=== PATIENT | female | born 1960 | race Caucasian/White ===

== ENCOUNTER → 2017-12-29 05:00 | Outpatient (REF) | payer MEDICARE, MEDICAID, SELFPAY ==
[2017-12-29 08:49] LABS: Erythrocyte Sedimentation Rate 65 mm/hr (0-30)
[2017-12-29 08:50] LABS: Hematocrit 41.5 % (37-47); Hemoglobin 13.5 g/dl (12.0-15.0); Mean Corp Hgb Conc 32.5 g/gl (32-36); Mean Corpuscular Hgb 29.2 pg (27.0-32.0); Mean Corpuscular Volume 89.6 fL (81-99); Mean Platelet Vol. 11.4 fl (6.2-12.0); Platelet Count 304 K/mm3 (150-450); RBC Distribution Width CV 17.1 % (11.6-14.6); RBC Distribution Width SD 54.5 fl (35.1-43.9); Red Blood Count 4.63 M/mm3 (4.2-5.4)
[2017-12-29 08:54] LABS: AST(SGOT) 25 U/L (15-37); Alanine Aminotransfer ALT/SGPT 31 U/L (13-56); Albumin, Serum 3.7 g/dL (3.2-5.0); Alkaline Phosphatase 73 U/L (45-117); Anion Gap 9 (5-15); BUN 18 mg/dL (7-18); BUN/Creat Ratio 30.2 RATIO (10-20); Calcium,Total 8.9 mg/dL (8.5-10.1); Chloride 105 mmol/L (98-107); EST Glomerular Filtration Rate 110 mL/min (>60); Est Glom Filt Rate - Afr Amer 133 mL/min (>60); Globulin 3.7 g/dL (2.2-4.2); Glucose 94 mg/dL (74-106); Potassium 5.6 mmol/L (3.5-5.1); Protein, Total 7.4 g/dL (6.4-8.2); Sodium Level 138 mmol/L (136-145)
[2017-12-29 08:58] LABS: Scan Indicated on CBC? Y/N NO
== END ==
LOC: OLS.WHLEAS 05:00
PROVIDERS: Visit Provider Family Medicine
DX: M06.9 Rheumatoid arthritis, unspecified (principal)
CPT/HCPCS: 36415; 80053; 85027; 85652

== ENCOUNTER → 2018-12-25 05:00 | Outpatient (REF) | payer MEDICARE, SELFPAY ==
[2018-12-25 07:13] LABS: Hematocrit 38.9 % (37-47); Hemoglobin 12.4 g/dl (12.0-15.0); Mean Corp Hgb Conc 31.9 g/gl (32-36); Mean Corpuscular Hgb 29.3 pg (27.0-32.0); Mean Platelet Vol. 10.3 fl (6.2-12.0); Platelet Count 249 K/mm3 (150-450); RBC Distribution Width CV 16.1 % (11.6-14.6); RBC Distribution Width SD 53.5 fl (35.1-43.9); Red Blood Count 4.23 M/mm3 (4.2-5.4); White Blood Count 7.2 K/mm3 (4.4-11.0)
[2018-12-25 07:16] LABS: Scan Indicated on CBC? Y/N NO
[2018-12-25 07:24] LABS: AST(SGOT) 12 U/L (15-37); Alanine Aminotransfer ALT/SGPT 12 U/L (13-56); Albumin, Serum 3.4 g/dL (3.2-5.0); Alkaline Phosphatase 61 U/L (45-117); Anion Gap 9 (5-15); BUN 16 mg/dL (7-18); BUN/Creat Ratio 30.2 RATIO (10-20); Calcium,Total 8.2 mg/dL (8.5-10.1); Chloride 111 mmol/L (98-107); Creatinine, Serum 0.53 mg/dL (0.55-1.02); EST Glomerular Filtration Rate 125 mL/min (>60); Est Glom Filt Rate - Afr Amer 152 mL/min (>60); Globulin 3.5 g/dL (2.2-4.2); Glucose 78 mg/dL (74-106); Protein, Total 6.9 g/dL (6.4-8.2); Sodium Level 142 mmol/L (136-145)
== END ==
LOC: OLS.AVED 05:00
PROVIDERS: Visit Provider Family Medicine
DX: R01.1 Cardiac murmur, unspecified (principal); M06.9 Rheumatoid arthritis, unspecified
CPT/HCPCS: 36415; 80053; 85027

== ENCOUNTER → 2021-03-20 14:47 | Outpatient (CLI) | payer MEDICARE, MEDICAID, SELFPAY ==
--- NOTE | 2021-03-20 14:52 | BD_ITS ---
STUDY: DUAL ENERGY X-RAY ABSORPTIOMETRY / DXA REASON FOR EXAM: Female, 60 years old. M06.9. Patient is postmenopausal. Daily use of PREDNISONE. Loss of height. TECHNIQUE: Bone Mineral Density (BMD) measurements of both forearms were obtained. COMPARISON: None. FINDINGS: Right Forearm: g/cm2 (0.466) / T-score (-4.8) / Z-score (-3.6) Left Forearm: g/cm2 (0.516) / T-score (-4.2) / Z-score (-3.1) BD/Dexa Bone Density/Append Skel IMPRESSION: The patient is considered osteoporotic as outlined below according to World Evaristo Organization (WHO) criteria with a high fracture risk. Reference Information: The T-score is the number of standard deviations above or below the standard which is normal for young adults at their peak bone mineral density. The World Health Organization (WHO) interprets the T-scores as follows: Above -1 Normal bone density Between -1 and -2.5 Osteopenia Equal to / or below -2.5 Osteoporosis As a practical clinical guideline, osteopenia may be graded as follows: Mild -1 through -1.5 Moderate -1.6 through -2.0 Severe -2.1 through -2.4 The Z-score is the number of standard deviations above or below age-matched controls. A Z-score of less than -1.5 would be considered abnormal. References: 1. NIH Osteoporosis and Related Bone Diseases www osteo.org 2. International Society for Clinical Densitometry www iscd.org 3. National Osteoporosis Foundation www nof.org Electronically Signed: Oniel Claros MD at 15:38 EDT , Service support ,
== END ==
PROVIDERS: PCP Family Medicine; Referring Provider Nurse Practitioner Family; Visit Provider Nurse Practitioner Family
DX: M06.9 Rheumatoid arthritis, unspecified (principal); M81.0 Age-related osteoporosis without current pathological fracture; Z78.0 Asymptomatic menopausal state
CPT/HCPCS: 77081

== ENCOUNTER 2025-05-08 02:57 | Emergency (ER) | payer MEDICARE, MEDICAID, SELFPAY ==
[2025-05-08] VITALS (8 sets, daily range): BP systolic 98–187; BP diastolic 56–90; PULSE 100–113; RESP 19–42; TEMP 36.8–37.1; O2SAT 92–98; BMI 65.6
--- NOTE | 2025-05-08 03:15 | CT_ITS ---
PROCEDURE: BRAIN/HEAD WITHOUT CONTRAST 05/08/2025 REASON FOR EXAM: HEADACHE, N/V, HIGH BP TECHNIQUE: BRAIN/HEAD WITHOUT CONTRAST Coronal and Sagittal reconstruction series were provided. One or more dose reduction techniques were used (e.g., Automated exposure control, adjustment of the mA and/or kV according to patient size, use of iterative reconstruction technique. RADIATION DOSE SUMMARY: CTDlvol: 44.99 mGy DLP: 863.6 MGycm COMPARISON: None. FINDINGS: Brain volume is age appropriate. The ventricles are not effaced or dilated. No midline shift, mass effect, or extra-axial fluid collections are identified. No acute intracranial hemorrhage, mass, or acute territorial infarction is identified per CT criteria. Walker-white junction is preserved. Calvarium is intact. Visualized paranasal sinuses are clear. The nasal septum is deviated to the right. CT/Brain/Head without Contrast IMPRESSION: No acute intracranial process. Reading [facility]
--- NOTE | 2025-05-08 03:16 | EKG12_ITS ---
Test Reason : DYSRHYTHMIA Blood Pressure : */* mmHG Vent. Rate : 107 BPM Atrial Rate : 107 BPM P-R Int : 164 ms QRS Dur : 96 ms QT Int : 350 ms P-R-T Axes : 28 -9 56 degrees QTcB Int : 467 ms Sinus tachycardia Otherwise normal ECG Confirmed by MALLORIE SALOMON, FIONA ([id number]), editorial writer CRESCENCIO EASLEY ([id number]) on 05/10/2025 7:42:32 AM Referred By: Confirmed By: FIONA NOBLES MD
--- NOTE | 2025-05-08 03:19 | ED.VIS.DYS ---
HPI History of Present Illness Chief Complaint: Shortness of Breath Informant: patient and EMS Narrative Narrative: 64-year-old female is in [facility] because of inability to ambulate related to severe rheumatoid arthritis, and started getting dyspneic tonight for hours, gradual in onset and worsening, so was brought to the ED at 3 AM for that and elevated blood pressure. She also states that for the last week or so she has been having progressively worsening pain in the back of her neck bilaterally that is worse when she moves from [id number] and better with remaining still. She had Biofreeze on it at 1 point which helped temporarily. She has had no injury. No fevers or chills, no mental status changes or focal neurologic deficits except she has been having headaches bitemporal along with some tingling in those areas and a couple times earlier in the week she states she had diplopia that was transient. She has had no vision changes or loss other than that, she has no focal neurologic symptoms or vision changes right now. She has chronic lymphedema in her abdomen and her legs that is no different than usual. She states she was nauseated and dry heaves earlier but denies any abdominal pain or diarrhea. She denies having any new back pain. [facility] Medical History Hypertensive heart disease Peripheral vascular disease Rheumatoid arteritis History of subarachnoid hemorrhage Home Medications ?Medication ?Instructions ?Recorded ?Last Taken ?Type alendronate 70 mg tablet (Fosamax) 70 mg PO QWEEK 05/08/25 Unknown History celecoxib 200 mg capsule 200 mg PO DAILY 05/08/25 Unknown History folic acid 1 mg tablet 1,000 mcg PO DAILY 05/08/25 Unknown History furosemide 20 mg tablet 20 mg PO DAILY 05/08/25 Unknown History hydroxychloroquine 200 mg tablet 300 mg PO DAILY 05/08/25 Unknown History (Plaquenil) methotrexate sodium 2.5 mg tablet 12.5 mg PO SEVERINO 05/08/25 Unknown History oxycodone-acetaminophen 5 mg-325 1 tab PO Q6H PRN PRN Pain 3 days 05/08/25 Unknown Rx mg tablet #12 TABLETS Allergy/AdvReac Type Severity Reaction Status Date / Time codeine AdvReac NEEDS Verified 05/08/25 02:59 FOLLOW-UP Social History Smoking Status: Never smoker ROS ROS ED Constitutional Constitutional ED: Denies chills or fever(s) Eyes Eyes: Reports other Details: Diplopia episodes earlier in the week but no vision changes now ; Denies change in vision ENT ENT ED: Denies rhinorrhea or sore throat Cardiovascular Cardiovascular: Denies chest pain or palpitations Respiratory/Chest Respiratory/Chest: Reports dyspnea; Denies cough Gastrointestinal Gastrointestinal: Reports nausea and vomiting; Denies abdominal pain or diarrhea Genitourinary Genitourinary ED: Denies dysuria or hematuria Musculoskeletal Musculoskeletal: Reports neck pain; Denies back pain Integumentary Denies abscess or rash Neurologic Neurologic: Reports headache(s) and other Details: Bitemporal head paresthesias, nothing in face or extremities ; Denies weakness Psychiatric Psychiatric: Denies suicidal thoughts EXAM Physical Exam Const Vital Signs: 05/08/25 02:58 05/08/25 02:58 05/08/25 03:24 Temperature 98.2 F Temperature Source Oral Pulse Rate 104 H 109 H Respiratory Rate 20 H 20 H Respiratory Effort Normal Non-Labored Respiratory Depth Normal Respiratory Pattern Tachypnea Normal Blood Pressure 187/84 H Blood Pressure Mean 118 Pulse Ox 98 Oxygen Delivery Method Room Air Room Air 05/08/25 03:35 05/08/25 04:31 05/08/25 05:07 Temperature Temperature Source Pulse Rate 112 H 113 H Respiratory Rate 42 H 19 H Respiratory Effort Respiratory Depth Respiratory Pattern Blood Pressure Blood Pressure Mean Pulse Ox 94 92 Oxygen Delivery Method Room Air 05/08/25 05:21 05/08/25 06:00 Temperature Temperature Source Pulse Rate 108 H Respiratory Rate Respiratory Effort Respiratory Depth Respiratory Pattern Blood Pressure 98/56 L 114/80 Blood Pressure Mean 70 91 Pulse Ox Oxygen Delivery Method Positive well nourished and well developed Constitutional Narrative: Morbidly obese General Appearance ED: well developed and NAD HEENT Reports moist mucous membranes normocephalic and atraumatic Eyes PERRL and EOMs intact bilaterally Neck full ROM, no lymphadenopathy, supple and no meningeal signs Neck Narrative: Limited eval for JVD due to obesity. Tender at the base bilateral posterior neck and trapezius. No midline tenderness. Able to take her chin to her chest without any difficulty or limitation, it is more turning [id number] it gives her issues. Resp normal respiratory effort Resp Narrative: Diminished throughout, mild expiratory wheezes, limited exam due to obesity but otherwise clear and conversive in full sentences Cardio regular rate, regular rhythm and no murmurs Cardio Narrative: Mildly tachycardic GI non-tender and non-distended GI Narrative: Abdominal exam is benign but limited due to morbid obesity Auscultation: normoactive bowel sounds Palpation: soft Back/Spine no CVA tenderness General Back: other FROM Extremity Extremity Narrative: Legs are grossly edematous, scaly, chronic and stable per patient, diffusely tender which she states is chronic as well. No signs of acute infection. Large chronic appearing nontender right olecranon bursitis. Several nontender firm nodules dorsal aspect of the right hand. General Extremety ED: Yes edema and tenderness; Negative for pulses abnormal General Extremity: edema bilateral lower extremity Details: severe; Negative for pulses abnormal Neuro oriented x3, CN's II-XII intact bilaterally and no sensory deficits noted Sensorium / Orientation: awake and alert Motor Exam: general weakness Psych Psych Narrative: Seems a little anxious Skin no rashes or lesions noted and no wounds MDM MDM MDM Narrative Medical decision making narrative: Unclear if or how the neck pain which seems very muscular is related to her acute dyspnea and hypertension. However given the plethora of symptoms, considering subarachnoid hemorrhage which she apparently has had a history of in the past, as well as congestive heart failure, wheezy bronchitis and/or allergic reaction causing pulmonary wheezing, pulmonary embolus, pneumonia although she has no acute cough, would be impossible to detect clinical DVT given the amount of edema on chronic abnormalities of the skin of her lower extremities. Therefore adding a dimer to her blood work. This was significantly elevated. In the meantime she had a chest x-ray 1 view on my interpretation unremarkable, and CT of the head on my interpretation appears unremarkable. She was sent for CT angiography of the chest to evaluate for PE, however she is too obese to fit in the scanner; they were able to do her head because they did not need to fit her body in the scanner. Her I had a long discussion with the patient and her niece who later arrived concerning all of this. She is feeling better after the nebulizer treatment, but she is really concerned about her neck. She states when she takes a deep breath her neck hurts, but her upper back and chest do not. She was in the 180s at the [facility], 180s here, but now when we recheck her she is 98/56 and actually feeling better not worse. We discussed the possibility of aortic dissection, pulmonary embolus, musculoskeletal issue in her neck that may or may not be related to her rheumatoid arthritis, pinched nerves for which she would be very difficult to get her in an MRI machine or may be impossible, and/your migraine headaches. I discussed my recommendation of anticoagulation empirically until she can have an outpatient VQ scan since she is not hypoxic, and it was not until this discussion that she states she would rather take her chances and not be anticoagulated and not come back for any other testing and I found out that she is DNR comfort care only, which our staff was not told by EMS or the [facility]. Patient confirms this. She states she does not want any of these advanced treatments or diagnostics, she just wants to be made comfortable which is why she is concerned about the neck pain that she is never dealt with before. I did obtain some x-rays of her neck, 3 views on my interpretation show no acute fracture. There are degenerative changes. In the meantime I gave her some Toradol and Reglan to see if that would help with musculoskeletal and/or migraine related pain. It helped a little, she was later given Dilaudid which really helped significantly. At this time she is feeling much better, cardiac and proBNP labs returned normal, and she understands about the abnormal D-dimer her dyspnea is better now after the nebulizer treatment and her blood pressure is 114/80. She is comfortable going back with a prescription for a short course of oxycodone. Lab Data Attestation: I reviewed the patient's lab results. Labs: Laboratory Results - last 24 hr 05/08/25 05/08/25 03:30 04:51 WBC 10.6 RBC 4.29 Hgb 11.3 L Hct 36.2 L MCV 84.4 MCH 26.3 L MCHC 31.2 L RDW Std Deviation 61.7 H RDW Coeff of Blaise 20.4 H Plt Count 238 MPV 10.2 Immature Gran % (Auto) 0.600 Neut % (Auto) 81.0 H Lymph % (Auto) 4.3 L Ritchie % (Auto) 12.8 H Eos % (Auto) 0.7 Baso % (Auto) 0.6 Absolute Neuts (auto) 8.6 H Absolute Lymphs (auto) 0.46 L Nucleated RBC % 0 Differential Comment SCANNED Polychromasia RARE Anisocytosis 1+ D-Dimer Quant (PE/DVT) 2.01 H* Sodium Cancelled 138 Potassium Cancelled 4.8 Chloride Cancelled 105 Carbon Dioxide Cancelled 20.1 L Anion Gap Cancelled 13 BUN Cancelled 15 Creatinine Cancelled 0.72 Estim Creat Clear Calc Cancelled 96.42 Est GFR (MDRD) Non-Af Cancelled 93 BUN/Creatinine Ratio Cancelled 20.9 H Glucose Cancelled 136 H Calcium Cancelled 8.7 Troponin T High Sens 9 NT pro BNP II 504 Radiography Diagnostic Testing: Clinical Impression(s) from Imaging Studies Brain CT 05/08/25 03:15 IMPRESSION: No acute intracranial process. Reading Location: [facility] Chest X-Ray 05/08/25 03:55 IMPRESSION: No acute cardiopulmonary process. Reading Location: [facility] Cervical Spine X-Ray 05/08/25 05:50 IMPRESSION: No acute process. Disc disease and spondylosis as above. Disclaimer: Reading [facility] Rhythm Strip Rhythm Strip: Sinus Tach Rate: 105 Ectopy: None EKG Initial EKG: Attestation: I personally reviewed and interpreted this EKG as follows: Interpretation: No Acute Injury Pattern and Sinus Tachycardia Comments: Nml axis & intervals; nml EKG Prior EKG tracings: not available for review Prior: No Prior Discharge Plan Triage Chief Complaint: Shortness of Breath ED Provider: Kenan Connolly Dx/Rx/DC Orders Clinical Impression: Wheezing, Musculoskeletal neck pain, Episode of hypertension, Headache Instructions: Understanding Neck Problems Prescriptions: New oxycodone-acetaminophen 5-325 mg tablet 1 tab PO Q6H PRN PRN (Reason: Pain) 3 Days Qty: 12 0RF No Action celecoxib 200 mg capsule 200 mg PO DAILY folic acid 1 mg tablet 1,000 mcg PO DAILY alendronate [Fosamax] 70 mg tablet 70 mg PO QWEEK methotrexate sodium 2.5 mg tablet 12.5 mg PO SEVERINO furosemide 20 mg tablet 20 mg PO DAILY hydroxychloroquine [Plaquenil] 200 mg tablet 300 mg PO DAILY Primary Care Provider: Spencer West Referrals: Spencer West MD [Primary Care Provider] - 3-5 Days if not improving Print Language: Kinyarwanda Disposition Disposition: Home, Self Care
--- OUTSIDE RECORDS SUMMARY | 2025-05-08 03:21 | XMS RPT_ITS | CCD ---
Author Organization [facility] Team Providers Care Oxygen Therapy Teacher Name Role Phone Joshua Ziegler (Hist) Primary Care Provider Un available [facility] Doctor, Out of Attending Unavailable Spencer West Primary Care Unavailable Spencer Bautista Attending Unavailable Joshua Ziegler (Hist) Primary Care Provider Un available ROWE, YANCYERPRIT Referring Unavailable JOSHUA ZIEGLER (HIST) Primary Care Unavaila ble ROWE, INDERPRIT Attending Unavailable JOSHUA ZIEGLER (HIST) Primary Care Unavaila ble ROWE, INDERPRIT Attending Unavailable Allergies Allergy Classification Reported Allergen(s) Allergy Type Date of Onset Reaction(s) Facility Opioid Agonists (2 sources) Codeine Drug Allergy 08-30-2013 GI Upset [facility] (20 sources) Codeine; Translations: [CODEINE] Drug Allergy 08-30-2013 [facility] Medications Current Medications Medication Drug Class(es) Dates Sig (Normalized) Sig (Original) acetaminophen 325 mg oral tablet (20 sources) take 2 tablets by mouth every six hours as needed acetaminophen (TYLENOL) 325 mg tablet Take 650 mg by mouth every 6 hours as needed. Active Comment on above: Take 650 mg by mouth every 6 hours as needed. alendronic acid 70 mg oral tablet (20 sources) Bisphosphonate Start: 05-11-2021 take 1 tablet by mouth every week in the morning alendronate (FOSAMAX) 70 mg tablet Take 1 tablet by mouth one time a week. in the AM with glass of water on empty stomach. Do not take anything else by mouth or lie down for 30 min 12 tablet 3 11/29/2021 Active Start: 02-19-2021 End: 08-18-2021 take 1 tablet by mouth every week in the morning alendronate (FOSAMAX) 35 mg tablet Take 1 tablet by mouth one time a week. In AM with cup of water on empty stomach. Nothing else by mouth and stay upright for 30 min. 12 tablet 1 02/19/2021 08/18/2021 Active Comment on above: Take 1 tablet by feliz one time a week. In AM with cup of water on empty stomach. Nothing else by mouth and stay upright for 30 min. Take 1 tablet by feliz th one time a week. in the AM with glass of water on empty stomach. Do not take anything else by mouth or lie down for 30 min celecoxib 200 mg oral capsule (20 sources) Nonsteroidal Anti-inflammatory Drug Start: 02-11-2025 End: 08-10-2025 take 1 capsule by mouth once daily celecoxib (CELEBREX) 200 mg capsule Take 1 capsule by mouth once daily. 30 capsule 5 02/11/2025 08/10/2025 Active Start: 11-29-2021 End: 11-29-2022 take 1 capsule by mouth once daily celecoxib (CELEBREX) 200 mg capsule Take 1 capsule by mouth once daily. 90 capsule 3 11/29/2021 11/29/2022 Active Comment on above: Take 200 mg by mouth once daily. Take 1 capsule by mo [facility] once daily. folic acid 1 mg oral tablet (18 sources) Start: 2021 End: 2022 take 1 tablet by mouth once daily folic acid 1 mg tablet Take 1 tablet by mouth once daily. 90 tablet 3 11/29/2021 11/29/2022 Active Comment on above: Take 1 mg by mouth o nce daily. Take 1 tablet by feliz once daily. furosemide 20 mg oral tablet (5 sources) Loop Diuretic take 1 tablet by mouth once daily furosemide (LASIX) 20 mg tablet Take 20 mg by mouth once daily. Active Comment on above: Take 20 mg by mouth once daily. hydroxychloroquine sulfate 200 mg oral tablet (17 sources) Antimalarial, Antirheumatic Agent Start: 2020 End: 2020 take 1.5 tablets by mouth once daily hydrOXYchloroQUINE (PLAQUENIL) 200 mg tablet Take 1.5 tablets by mouth once daily. 135 tablet 1 05/11/2021 11/07/2021 Active hydrOXYchloroQUI NE (PLAQUENIL) 200 mg tablet Take 300 mg by mouth once daily. Active Comment on above: Take 1.5 tablets by mouth once daily. Take 300 mg by mouth once daily. methotrexate 2.5 mg oral tablet (20 sources) Folate Analog Metabolic Inhibitor Start: 06-16-2022 End: 12-13-2022 methotrexate 2.5 mg tablet Take 10 tablets by mouth every Friday. as directed. 120 tablet 06/16/2022 Active Start: 06-16-2022 End: 06-11-2022 methotrexate 2.5 mg tablet T kelli 10 tablets by mouth every Friday. as directed. 120 tablet 0 06/16/2022 06/11/2022 Discontinued Start: 06-16-2022 End: 12-13-2022 methotrexate 2.5 mg tablet T kelli 10 tablets by mouth every Friday. as directed. 120 tablet 0 06/16/2022 12/13/2022 Active Start: 12-02-2021 End: 06-10-2022 methotrexate 2.5 mg tablet T kelli 10 tablets by mouth every Friday. as directed. 120 tablet 0 12/02/2021 06/10/2022 Discontinued Start: 11-18-2021 End: 11-28-2021 take 1 tablet by mouth once methotrexate 2.5 mg tablet Take 10 tablets by mouth every Friday. as directed. 120 tablet 1 11/18/2021 11/28/2021 Discontinued Start: 11-18-2021 End: 11-15-2021 take 1 tablet by mouth once methotrexate 2.5 mg tablet Take 10 tablets by mouth every Friday. as directed. 120 tablet 1 11/18/2021 11/15/2021 Discontinued (Course of therapy completed) Start: 11-18-2021 End: 05-17-2022 take 1 tablet by mouth once methotrexate 2.5 mg tablet Take 10 tablets by mouth every Friday. as directed. 120 tablet 1 11/18/2021 05/17/2022 Active Start: 02-25-2021 End: 02-14-2022 take 8 tablets by mouth once methotrexate 2.5 mg table t Take 8 tablets by mouth every Friday. as directed. 104 tablet 1 02/25/2021 02/14/2022 Discontinued Start: 02-25-2021 End: 02-19-2021 take 8 tablets by mouth once methotrexate 2.5 mg table t Take 8 tablets by mouth every Friday. as directed. 104 tablet 1 02/25/2021 02/19/2021 Discontinued Start: 02-25-2021 End: 08-24-2021 take 8 tablets by mouth once methotrexate 2.5 mg table t Take 8 tablets by mouth every Friday. as directed. 104 tablet 1 02/25/2021 08/24/2021 Active End: 05-17-2022 methotrexate 2.5 mg tablet T kelil 25 mg by mouth one time a week. 0 05/17/2022 Discontinued (Course of therapy completed) End: 02-19-2021 take 5 tablets by mouth every week methotrexate 2.5 mg tablet Take 12.5 mg by mouth one time a week. 0 02/19/2021 Discontinued (Course of therapy completed) Comment on above: Take 12.5 mg by mout h one time a week. Take 8 tablets by mo uth every Friday. as directed. Take 10 tablets by m outh every Friday. as directed. Take 25 mg by mouth one time a week. Completed/Discontinued Medications Medication Drug Class(es) Dates Sig (Normalized) Sig (Original) diphenhydrAMINE hydrochloride 25 mg oral capsule (1 source) Histamine-1 Receptor Antagonist End: 02-19-2021 take 1 capsule by mouth every six hours as needed diphenhydrAMINE (BENADRYL) 25 mg capsule Take 25 mg by mouth every 6 hours as needed. 0 02/19/2021 Discontinued (Course of therapy completed) Comment on above: Take 25 mg by mouth every 6 hours as needed. Naproxen (1 source) Nonsteroidal Anti-inflammatory Drug End: 02-19-2021 NAPROXEN SODIUM (ALEVE ORAL) Take by mouth. 0 02/19/2021 Discontinued (Course of therapy completed) Comment on above: Take by mouth. predniSONE 2.5 mg oral tablet (7 sources) Start: 03-07-2021 take 1 tablet by mouth once daily predniSONE (DELTASONE) 2.5 mg tablet Take 1 tablet by mouth once daily. 0 03/07/2021 Active Start: 02-19-2021 End: 05-20-2021 take 1 tablet by mouth once daily predniSONE (DELTASONE) 5 mg tablet Take 1 tablet by mouth once daily. 90 tablet 1 02/19/2021 03/07/2021 Discontinued (Course of therapy completed) Start: 08-30-2013 End: 02-19-2021 predniSONE 10 mg tablet Bernadette cations: Shingles Take 6 tabs for 3 days, then 4 tabs for 3 days, then 2 tabs for 3 days then 1 tab for 3 days with food. 39 tablet 0 08/30/2013 02/19/2021 Discontinued (Course of therapy completed) Comment on above: Take 1 tablet by feliz th once daily. Take 6 tabs for 3 da ys, then 4 tabs for 3 days, then 2 tabs for 3 days then 1 tab for 3 days with food. traMADol hydrochloride 50 mg oral tablet (6 sources) Opioid Agonist Start: 02-19-2021 End: 02-26-2021 take 1 tablet by mouth every six hours as needed for pain traMADol (ULTRAM) 50 mg tablet Indications: Rheumatoid arthritis involving both hands with positive rheumatoid factor (HCC) Take 1 tablet by mouth every 6 hours as needed for Pain for up to 7 days. 28 tablet 0 02/19/2021 02/26/2021 Active Comment on above: Take 50 mg by mouth every 6 hours as needed. Take 1 tablet by feliz th every 6 hours as needed for Pain for up to 7 days. Take 1 tablet by feliz th every 6 hours as needed for up to 7 days. Problems Active Problems Problem Classification Problem Date Documented Date Episodic/Chronic Osteoporosis (9 sources) Senile osteoporosis; Translations: [Age-related osteoporosis without current pathological fracture] Onset: 10-04-2024 10-04-2024 Chronic Other connective tissue disease (2 sources) Effusion of olecranon bursa of right elbow; Translations: [Effusion of right olecranon bursa] Onset: 03-07-2021 03-07-2021 Other infections; including parasitic (1 source) Disorder due to infection; Translations: [Unspecified infectious disease] Episodic Residual codes; unclassified (1 source) Postmenopausal state; Translations: [Asymptomatic postmenopausal status] Episodic Rheumatoid arthritis and related disease (20 sources) Rheumatoid arthritis with rheumatoid factor of right hand without organ or systems involvement; Translations: [Bilateral rheumatoid arthritis of hands] Onset: 03-07-2021 03-07-2021 Chronic Past or Other Problems Problem Classification Problem Date Documented Da te Episodic/Chronic Other non-traumatic joint disorders (18 sources) Effusion of olecranon bursa of right elbow; Translations: [Effusion, right elbow] Onset: 03-07-2021 03-07-2021 Episodic Results Test Name Value Interpretation Reference Range Migue Bolden 02-11-2025 DORISN Telephone ([employer]) ----- ESTEPHANIE RICHARDSON ([id number]) 1960 F Date Time Provider Department 02/11/25 SUSAN ROWE During your visit today, we recorded the following information about you: Allergies As of Date: 02/11/2025 Noted Allergy Reaction CODEINE 08/30/2013 8 - GI Upset Comments: Pain in chest, felt hot Date Reviewed: 05/17/2022 Reviewed by: Susan Rowe MD - Fully Assessed Prescriptions as of 02/11/2025 - celecoxib (CELEBREX) 200 mg capsule Take 1 capsule by mouth once daily. - furosemide (LASIX) 20 mg tablet Take 20 mg by mouth once daily. - methotrexate 2.5 mg tablet Take 10 tablets by mouth every Friday. as directed. - alendronate (FOSAMAX) 70 mg tablet Take 1 tablet by mouth one time a week. in the AM with glass of water on empty stomach. Do not take anything else by mouth or lie down for 30 min - hydrOXYchloroQUINE (PLAQUENIL) 200 mg tablet Take 300 mg by mouth once daily. - acetaminophen (TYLENOL) 325 mg tablet Take 650 mg by mouth every 6 hours as needed. Problem List As Of Date 02/11/2025 Noted Resolved Rheumatoid arthritis involving both hands with *03/07/2021 Effusion of right olecranon bursa [M25.421] 03/07/2021 Senile osteoporosis [M81.0] 10/04/2024 Encounter Status:Closed by YESSICA LYLES on 02/11/25 [facility] Kim[facility]20[facility] ----- RADHAESTEPHANIE Arce ([id number]) 1960 F Date Time Provider Department 10/05/24 SUSAN ROWE During your visit today, we recorded the following information about you: Allergies As of Date: 10/05/2024 Noted Allergy Reaction CODEINE 08/30/2013 8 - GI Upset Comments: Pain in chest, felt hot Date Reviewed: 05/17/2022 Reviewed by: Susan Rowe MD - Fully Assessed Reason for Visit: Appointment [[id number]] Prescriptions as of 10/05/2024 - furosemide (LASIX) 20 mg tablet Take 20 mg by mouth once daily. - methotrexate 2.5 mg tablet Take 10 tablets by mouth every Friday. as directed. - alendronate (FOSAMAX) 70 mg tablet Take 1 tablet by mouth one time a week. in the AM with glass of water on empty stomach. Do not take anything else by mouth or lie down for 30 min - hydrOXYchloroQUINE (PLAQUENIL) 200 mg tablet Take 300 mg by mouth once daily. - acetaminophen (TYLENOL) 325 mg tablet Take 650 mg by mouth every 6 hours as needed. Problem List As Of Date 10/05/2024 Noted Resolved Rheumatoid arthritis involving both hands with *03/07/2021 Effusion of right olecranon bursa [M25.421] 03/07/2021 Senile osteoporosis [M81.0] 10/04/2024 Encounter Status:Closed by YESSICA LYLES on 10/05/24 [facility] Encounters Encounter Date Encounter Type Care Provider Facility Start: 02-11-2025 End: 02-11-2025 Telephone encounter Susan Rowe MD Work Phone: [facility] [place] Start: 02-11-2025 End: 02-11-2025 Patient encounter procedure Susan Rowe MD Work Phone: [facility] [place] Comment on above: Rheumatoid arthritis involving both hands with positive rheumatoid factor (HCC) (Primary Dx); Disuse osteoporosis Start: 02-11-2025 End: 02-11-2025 Telemedicine consultation with patient Susan Rowe MD Work Phone: [facility] [place] Start: 02-11-2025 End: 02-11-2025 ambulatory JOSHUA Garnica (ANGELICA) TONEY Facility:[facility] Start: 10-11-2024 ambulatory Out of Town Doctor Kira hopey:[facility] Start: 10-05-2024 End: 10-05-2024 Telephone encounter Susan Rowe MD Work Phone: [facility] [place] Comment on above: Appointment Start: 10-04-2024 End: 10-04-2024 Patient encounter procedure Susan Rowe MD Work Phone: [facility] [place] Comment on above: Rheumatoid arthritis involving both hands with positive rheumatoid factor (HCC) (Primary Dx); Senile osteoporosis Start: 10-04-2024 End: 10-04-2024 Telemedicine consultation with patient Susan Rowe MD Work Phone: [facility] [place] Start: 10-04-2024 End: 10-04-2024 ambulatory SUSAN ROWE Facility:[facility] Start: 09-20-2024 ambulatory Spencer West Facility:[facility] Start: 08-16-2022 End: 08-16-2022 ambulatory Susan Rowe MD Work Phone: [facility] [place] Comment on above: Rheumatoid arthritis involving both hands with positive rheumatoid factor (HCC) (Primary Dx) Start: 08-16-2022 End: 08-16-2022 Telemedicine consultation with patient Susan Rowe MD Work Phone: [facility] Start: 06-11-2022 Telephone encounter Susan Rowe MD Work Phone: [facility] Comment on above: Medication Request Start: 06-10-2022 Refill Susan sanchez MD Work Phone: [facility] [place] Comment on above: Refill Request Start: 05-30-2022 Telephone encounter Susan Rowe MD Work Phone: [facility] [place] Comment on above: Follow Up Start: 05-17-2022 End: 05-17-2022 ambulatory Susan Rowe MD Work Phone: [facility] [place] Comment on above: Rheumatoid arthritis involving both hands with positive rheumatoid factor (HCC) (Primary Dx) Start: 05-17-2022 End: 05-17-2022 Telemedicine consultation with patient Susan Rowe MD Work Phone: [facility] Start: 02-14-2022 Telephone encounter Susan Rowe MD Work Phone: [facility] [place] Comment on above: Follow Up Start: 02-14-2022 End: 02-14-2022 ambulatory Susan Rowe MD Work Phone: [facility] [place] Comment on above: Rheumatoid arthritis involving both hands with positive rheumatoid factor (HCC) (Primary Dx); Recurrent infections Start: 02-14-2022 End: 02-14-2022 Telemedicine consultation with patient Susan Rowe MD Work Phone: [facility] Start: 11-28-2021 Telephone encounter Susan Rowe MD Work Phone: [facility] [place] Comment on above: Patient Update Refill Request Start: 11-15-2021 Telephone encounter Susna Roew MD Work Phone: [facility] [place] Comment on above: Medication Request Start: 08-16-2021 End: 08-16-2021 Telephone encounter Susan Rowe MD Work Phone: [facility] [place] Comment on above: Booster / Methotrexa te Start: 08-16-2021 End: 08-16-2021 ambulatory Susan Rowe MD Work Phone: [facility] [place] Comment on above: Rheumatoid arthritis involving both hands with positive rheumatoid factor (HCC) (Primary Dx) Start: 08-16-2021 End: 08-16-2021 Telemedicine consultation with patient Susan Rowe MD Work Phone: [facility] [place] Start: 05-11-2021 End: 05-11-2021 Telephone encounter Susan Rowe MD Work Phone: [facility] [place] Comment on above: Orders Start: 03-09-2021 End: 03-09-2021 Telephone encounter Susan Rowe Work Phone: [facility] Comment on above: Initial Consult (dayana chamorro) Start: 03-07-2021 End: 03-07-2021 Patient encounter procedure Susan Rowe Work Phone: [facility] Comment on above: Rheumatoid arthritis involving both hands with positive rheumatoid factor (HCC) (Primary Dx); Effusion of right olecranon bursa Start: 03-07-2021 End: 03-07-2021 Telemedicine consultation with patient Susan Rowe Work Phone: [facility] Start: 02-21-2021 End: 02-21-2021 Telephone encounter Susan Rowe Work Phone: [facility] Comment on above: Patient Update Start: 02-19-2021 End: 02-19-2021 Telephone encounter Susan Rowe Work Phone: [facility] Comment on above: Patient Update Start: 02-16-2021 End: 02-19-2021 Patient encounter procedure Susan Rowe Work Phone: [facility] Comment on above: Rheumatoid arthritis involving both hands with positive rheumatoid factor (HCC) (Primary Dx); Asymptomatic postmenopausal status Start: 02-16-2021 End: 02-19-2021 Telemedicine consultation with patient Yancydorinda Michi Work Phone: [facility] Plan of Treatment Date Care Activity Detail Author Start: 2033 RSV Vaccine (1 - 1-d ose 75+ series) RSV Vaccine (1 - 1-dose 75+ series) [facility] Start: 06-17-2025 End: 06-17-2025 Patient encounter procedure 06/17/2025 1:20 PM EDT [facility] [place] [id number] [place], [place] [id number] Susan Rowe MD [address] [place], [place] [id number] 3 MONTH FU [facility] [place] Comment on above: 3 MONTH FU Start: 02-11-2025 End: 05-13-2025 CBC W Auto Differential panel - Blood COMPLETE BLOOD COUNT AND DIFFERENTIAL Lab Routine Rheumatoid arthritis involving both hands with positive rheumatoid factor (HCC) Expected: 02/11/2025, Expires: 05/13/2025 [facility] Work Phone: Comment on above: Expected: 02/11/2025 , Expires: 05/13/2025 Start: 02-11-2025 End: 05-13-2025 Comprehensive metabolic 2000 panel - Serum or Plasma COMPREHENSIVE METABOLIC PANEL Lab Routine Rheumatoid arthritis involving both hands with positive rheumatoid factor (HCC) Expected: 02/11/2025, Expires: 05/13/2025 [facility] Comment on above: Expected: 02/11/2025 , Expires: 05/13/2025 Start: 02-11-2025 End: 05-13-2025 Erythrocyte sedimentation rate SEDIMENTATION RATE, WESTERGREN Lab Routine Rheumatoid arthritis involving both hands with positive rheumatoid factor (HCC) Expected: 02/11/2025, Expires: 05/13/2025 [facility] Comment on above: Expected: 02/11/2025 , Expires: 05/13/2025 Start: 02-11-2025 End: 02-11-2025 Follow-up encounter 02/11/2025 1:20 PM EDT [facility] [place] [id number] [place], [place] [id number] Susan Rowe MD [address] [place], [place] [id number] Follow up [facility] [place] Comment on above: Follow up Start: 11-24-2024 Advance Directive Discussion Advance Directive Discussion [facility] Start: 07-25-2024 Covid-19 Vaccine ( season) Covid-19 Vaccine ( season) [facility] Start: 07-25-2024 Influenza vaccination Influenza Vacc ine (#1) [facility] Start: 11-24-2023 Advance Directive Discussion Advance Directive Discussion [facility] Start: 2023 Pneumococcal Vaccine : 65+ (1 of 1 - PCV) Pneumococcal Vaccine: 65+ (1 of 1 - PCV) [facility] Start: 2023 Screening for osteoporosis Bone Density Screening [facility] Start: 08-16-2022 End: 10-16-2022 CBC W Auto Differential panel - Blood CBC + DIFF Lab Routine Rheumatoid arthritis involving both hands with positive rheumatoid factor (HCC) Expected: 08/16/2022, Expires: 10/16/2022 [facility] Work Phone: Comment on above: Expected: 08/16/2022 , Expires: 10/16/2022 Start: 08-16-2022 End: 10-16-2022 Comprehensive metabolic 2000 panel - Serum or Plasma COMP METABOLIC PANEL Lab Routine Rheumatoid arthritis involving both hands with positive rheumatoid factor (HCC) Expected: 08/16/2022, Expires: 10/16/2022 [facility] Work Phone: Comment on above: Expected: 08/16/2022 , Expires: 10/16/2022 Start: 08-16-2022 End: 10-16-2022 Erythrocyte sedimentation rate SED RATE WESTERGREN Lab Routine Rheumatoid arthritis involving both hands with positive rheumatoid factor (HCC) Expected: 08/16/2022, Expires: 10/16/2022 [facility] Work Phone: Comment on above: Expected: 08/16/2022 , Expires: 10/16/2022 Start: 07-25-2022 Influenza vaccination INFLUENZA (#1) [facility] Start: 05-17-2022 End: 07-17-2022 CBC panel - Blood by Automated count CBC Lab Routine Rheumatoid arthritis involving both hands with positive rheumatoid factor (HCC) Expected: 05/17/2022, Expires: 07/17/2022 [facility] Work Phone: Comment on above: Expected: 05/17/2022 , Expires: 07/17/2022 Start: 05-17-2022 End: 07-17-2022 Comprehensive metabolic 2000 panel - Serum or Plasma COMP METABOLIC PANEL Lab Routine Rheumatoid arthritis involving both hands with positive rheumatoid factor (HCC) Expected: 05/17/2022, Expires: 07/17/2022 [facility] Work Phone: Comment on above: Expected: 05/17/2022 , Expires: 07/17/2022 Start: 05-17-2022 End: 07-17-2022 Erythrocyte sedimentation rate SED RATE WESTERGREN Lab Routine Rheumatoid arthritis involving both hands with positive rheumatoid factor (HCC) Expected: 05/17/2022, Expires: 07/17/2022 [facility] Work Phone: Comment on above: Expected: 05/17/2022 , Expires: 07/17/2022 Start: 02-14-2022 End: 04-16-2022 CBC W Auto Differential panel - Blood CBC + DIFF Lab Routine Rheumatoid arthritis involving both hands with positive rheumatoid factor (HCC) Expected: 02/14/2022, Expires: 04/16/2022 [facility] Work Phone: Comment on above: Expected: 02/14/2022 , Expires: 04/16/2022 Start: 02-14-2022 End: 04-16-2022 Comprehensive metabolic 2000 panel - Serum or Plasma COMP METABOLIC PANEL Lab Routine Rheumatoid arthritis involving both hands with positive rheumatoid factor (HCC) Expected: 02/14/2022, Expires: 04/16/2022 [facility] Work Phone: Comment on above: Expected: 02/14/2022 , Expires: 04/16/2022 Start: 02-14-2022 End: 04-16-2022 DIPHTHER/TETANUS AB DIPHTHER/TETANUS AB Lab Routine Recurrent infections Expected: 02/14/2022, Expires: 04/16/2022 [facility] Work Phone: Comment on above: Expected: 02/14/2022 , Expires: 04/16/2022 Start: 02-14-2022 End: 04-16-2022 Erythrocyte sedimentation rate SED RATE WESTERGREN Lab Routine Rheumatoid arthritis involving both hands with positive rheumatoid factor (HCC) Expected: 02/14/2022, Expires: 04/16/2022 [facility] Work Phone: Comment on above: Expected: 02/14/2022 , Expires: 04/16/2022 Start: 02-14-2022 End: 04-16-2022 IgG [Mass/volume] in Serum or Plasma IGG Lab Routine Recurrent infections Expected: 02/14/2022, Expires: 04/16/2022 [facility] Work Phone: Comment on above: Expected: 02/14/2022 , Expires: 04/16/2022 Start: 02-14-2022 End: 04-16-2022 PNEUMOCOCCAL IGG ABS, 14 SEROTYPES PNEUMOCOCCAL IGG ABS, 14 SEROTYPES Lab Routine Recurrent infections Expected: 02/14/2022, Expires: 04/16/2022 [facility] Work Phone: Comment on above: Expected: 02/14/2022 , Expires: 04/16/2022 Start: 11-28-2021 End: 11-28-2022 C reactive protein [Mass/volume] in Serum or Plasma C-REACTIVE PROTEIN (CRP) Lab Routine Rheumatoid arthritis involving both hands with positive rheumatoid factor (HCC) Expected: 11/28/2021, Expires: 11/28/2022 [facility] Work Phone: Comment on above: Expected: 11/28/2021 , Expires: 11/28/2022 Start: 11-28-2021 End: 11-28-2022 CBC W Auto Differential panel - Blood CBC + DIFF Lab Routine Rheumatoid arthritis involving both hands with positive rheumatoid factor (HCC) Expected: 11/28/2021, Expires: 11/28/2022 [facility] Work Phone: Comment on above: Expected: 11/28/2021 , Expires: 11/28/2022 Start: 11-28-2021 End: 11-28-2022 Comprehensive metabolic 2000 panel - Serum or Plasma COMP METABOLIC PANEL Lab Routine Rheumatoid arthritis involving both hands with positive rheumatoid factor (HCC) Expected: 11/28/2021, Expires: 11/28/2022 [facility] Work Phone: Comment on above: Expected: 11/28/2021 , Expires: 11/28/2022 Start: 11-28-2021 End: 11-28-2022 Erythrocyte sedimentation rate SED RATE WESTERGREN Lab Routine Rheumatoid arthritis involving both hands with positive rheumatoid factor (HCC) Expected: 11/28/2021, Expires: 11/28/2022 [facility] Work Phone: Comment on above: Expected: 11/28/2021 , Expires: 11/28/2022 Start: 08-16-2021 End: 08-16-2022 BLOOD TB SCREEN, INCUBATED BLOOD TB SCREEN, INCUBATED Lab Routine Rheumatoid arthritis involving both hands with positive rheumatoid factor (HCC) Expected: 08/16/2021, Expires: 08/16/2022 [facility] Comment on above: Expected: 08/16/2021 , Expires: 08/16/2022 Start: 08-16-2021 End: 08-16-2022 C reactive protein [Mass/volume] in Serum or Plasma C-REACTIVE PROTEIN (CRP) Lab Routine Rheumatoid arthritis involving both hands with positive rheumatoid factor (HCC) Expected: 08/16/2021, Expires: 08/16/2022 [facility] Comment on above: Expected: 08/16/2021 , Expires: 08/16/2022 Start: 08-16-2021 End: 08-16-2022 CBC W Auto Differential panel - Blood CBC + DIFF Lab Routine Rheumatoid arthritis involving both hands with positive rheumatoid factor (HCC) Expected: 08/16/2021, Expires: 08/16/2022 [facility] Comment on above: Expected: 08/16/2021 , Expires: 08/16/2022 Start: 08-16-2021 End: 08-16-2022 Comprehensive metabolic 2000 panel - Serum or Plasma COMP METABOLIC PANEL Lab Routine Rheumatoid arthritis involving both hands with positive rheumatoid factor (HCC) Expected: 08/16/2021, Expires: 08/16/2022 [facility] Comment on above: Expected: 08/16/2021 , Expires: 08/16/2022 Start: 08-16-2021 End: 08-16-2022 Erythrocyte sedimentation rate SED RATE WESTERGREN Lab Routine Rheumatoid arthritis involving both hands with positive rheumatoid factor (HCC) Expected: 08/16/2021, Expires: 08/16/2022 [facility] Comment on above: Expected: 08/16/2021 , Expires: 08/16/2022 Start: 08-16-2021 End: 08-16-2022 Hepatitis B virus surface Ab [Presence] in Serum by Immunoassay HEP B SURF AG SCRN Lab Routine Rheumatoid arthritis involving both hands with positive rheumatoid factor (HCC) Expected: 08/16/2021, Expires: 08/16/2022 [facility] Comment on above: Expected: 08/16/2021 , Expires: 08/16/2022 Start: 08-16-2021 End: 08-16-2022 Hepatitis C virus Ab [Presence] in Serum HEP C AB IA W/CONF SCRN Lab Routine Rheumatoid arthritis involving both hands with positive rheumatoid factor (HCC) Expected: 08/16/2021, Expires: 08/16/2022 [facility] Comment on above: Expected: 08/16/2021 , Expires: 08/16/2022 Start: 07-25-2021 Influenza vaccination [facility] Start: 07-25-2020 Influenza vaccination INFLUENZA (#1) [facility] Start: 2018 RSV Vaccine (1 - Ris k 60-74 years 1-dose series) RSV Vaccine (1 - Risk 60-74 years 1-dose series) [facility] Start: 2008 Pneumococcal Vaccine : 50+ (1 of 1 - PCV) Pneumococcal Vaccine: 50+ (1 of 1 - PCV) [facility] Start: 2008 Screening for malign ant neoplasm of colon [facility] Start: 2008 SHINGRIX VACCINE (1 of 2) SHINGRIX VACCINE (1 of 2) [facility] Start: 2003 COLOGUARD (FIT-DNA) COLOGUARD (FIT-D NA) [facility] Start: 2003 Colonoscopy COLONOSCOPY [facility] Start: 2003 COLORECTAL CANCER SCREENING COLORECTAL CANCER SCREENING [facility] Start: [address] COLONOGRAPHY [facility] Start: 2003 DIABETES SCREEN DIABETES SCREEN [facility] Start: 2003 Diabetes Screening Diabetes Screenin g [facility] Start: 2003 FECAL OCCULT BLOOD FECAL OCCULT BLOO D [facility] Start: 2003 Lipid panel Lipid Screening [facility] Start: 2003 LIPID SCREEN LIPID SCREEN [facility] Start: 2003 Screening for malign ant neoplasm of colon [facility] Start: [address] [facility] Start: 1998 Mammography MAMMOGRAM [facility] Start: 1998 Screening for malign ant neoplasm of breast Mammogram Screening [facility] Start: 1988 HPV TESTING HPV TESTING [facility] Start: 1979 PAP TESTING PAP TESTING [facility] Start: 1977 SHINGRIX VACCINE (1 of 2) SHINGRIX VACCINE (1 of 2) [facility] Start: 1977 Urine microalbumin profile [facility] Start: 1976 Anxiety Screening Anxiety Screening [facility] Start: 1976 Depression Screening Depression Scre ening [facility] Start: 1976 HEPATITIS C SCREENING HEPATITIS C [facility] Start: 1976 Hepatitis C screening Hepatitis C [facility] Start: 1976 HIV SCREEN[address] HIV SCREENING [facility] Start: 1976 HIV screening HIV Screening [facility] Start: 1970 Adult depression screening assessment DEPRESSION SCREENING [facility] Start: 1970 COVID-19 VACCINE (1) COVID-19 VACCIN E (1) [facility] Start: 1969 Screening for malign ant neoplasm of cervix Cervical Cancer Screening [facility] Start: 1964 PNEUMOCOCCAL (1 - PCV) PNEUMOCOCCAL (1 - PCV) [facility] Start: 1964 Pneumococcal Vaccine : 65+ (1 of 2 - PCV) Pneumococcal Vaccine: 65+ (1 of 2 - PCV) [facility] Start: 1963 COVID-19 VACCINE (#1) COVID-19 VACCI NE (#1) [facility] Start: 05-09-1959 COVID-19 VACCINE (#1) COVID-19 VACCI NE (#1) [facility] End: 02-19-2022 JASWANT BY IFA SCREEN JAWSANT BY IFA SCREEN Lab Routine Rheumatoid arthritis involving both hands with positive rheumatoid factor (HCC) 1 Occurrences starting 02/19/2021 until 02/19/2022 [facility] Comment on above: 1 Occurrences starti ng 02/19/2021 until 02/19/2022 End: 02-19-2022 CBC W Auto Differential panel - Blood CBC + DIFF Lab Routine Rheumatoid arthritis involving both hands with positive rheumatoid factor (HCC) 1 Occurrences starting 02/19/2021 until 02/19/2022 [facility] Comment on above: 1 Occurrences starti ng 02/19/2021 until 02/19/2022 End: 02-19-2022 CK CREATINE KINASE CK CREATINE KINASE Lab Routine Rheumatoid arthritis involving both hands with positive rheumatoid factor (HCC) 1 Occurrences starting 02/19/2021 until 02/19/2022 [facility] Comment on above: 1 Occurrences starti ng 02/19/2021 until 02/19/2022 End: 02-19-2022 Comprehensive metabolic 2000 panel COMP METABOLIC PANEL Lab Routine Rheumatoid arthritis involving both hands with positive rheumatoid factor (HCC) 1 Occurrences starting 02/19/2021 until 02/19/2022 [facility] Comment on above: 1 Occurrences starti ng 02/19/2021 until 02/19/2022 End: 02-19-2022 CRP [Mass/Vol] C-REACTIVE PROTEIN (CRP) Lab Routine Rheumatoid arthritis involving both hands with positive rheumatoid factor (HCC) 1 Occurrences starting 02/19/2021 until 02/19/2022 [facility] Comment on above: 1 Occurrences starti ng 02/19/2021 until 02/19/2022 End: 02-19-2022 Cyclic citrullinated peptide IgG Qn CCP ANTIBODY IGG Lab Routine Rheumatoid arthritis involving both hands with positive rheumatoid factor (HCC) 1 Occurrences starting 02/19/2021 until 02/19/2022 [facility] Comment on above: 1 Occurrences starti ng 02/19/2021 until 02/19/2022 End: 03-21-2022 Dxa bone density study 1/> sites axial skel DXA-AXIAL SKELETON Radiology Routine Asymptomatic postmenopausal status 1 Occurrences starting 02/19/2021 until 03/21/2022 [facility] Comment on above: 1 Occurrences starti ng 02/19/2021 until 03/21/2022 End: 11-03-2025 DXA Skeletal system.axial Views for bone density DXA-AXIAL SKELETON Radiology Routine Senile osteoporosis 1 Occurrences starting 10/04/2024 until 11/03/2025 [facility] Work Phone: Comment on above: 1 Occurrences starti ng 10/04/2024 until 11/03/2025 End: 03-13-2026 DXA Skeletal system.axial Views for bone density DXA-AXIAL SKELETON Radiology Routine Disuse osteoporosis 1 Occurrences starting 02/11/2025 until 03/13/2026 [facility] Comment on above: 1 Occurrences starti ng 02/11/2025 until 03/13/2026 End: 02-19-2022 ESR (Bld) [Velocity] SED RATE WESTERGREN Lab Routine Rheumatoid arthritis involving both hands with positive rheumatoid factor (HCC) 1 Occurrences starting 02/19/2021 until 02/19/2022 [facility] Comment on above: 1 Occurrences starti ng 02/19/2021 until 02/19/2022 End: 02-19-2022 HBV surface Ab IA Ql (S) HEP B SURF AG SCRN Lab Routine Rheumatoid arthritis involving both hands with positive rheumatoid factor (HCC) 1 Occurrences starting 02/19/2021 until 02/19/2022 [facility] Comment on above: 1 Occurrences starti ng 02/19/2021 until 02/19/2022 End: 02-19-2022 HCV Ab Ql (S) HEP C AB IA W/CONF SCRN Lab Routine Rheumatoid arthritis involving both hands with positive rheumatoid factor (HCC) 1 Occurrences starting 02/19/2021 until 02/19/2022 [facility] Comment on above: 1 Occurrences starti ng 02/19/2021 until 02/19/2022 End: 02-19-2022 RHEUMATOID FACTOR BL RHEUMATOID FACTOR BL Lab Routine Rheumatoid arthritis involving both hands with positive rheumatoid factor (HCC) 1 Occurrences starting 02/19/2021 until 02/19/2022 [facility] Comment on above: 1 Occurrences starti ng 02/19/2021 until 02/19/2022 End: 02-19-2022 Urate [Mass/Vol] URIC ACID BLOOD Lab Routine Rheumatoid arthritis involving both hands with positive rheumatoid factor (HCC) 1 Occurrences starting 02/19/2021 until 02/19/2022 [facility] Comment on above: 1 Occurrences starti ng 02/19/2021 until 02/19/2022 [facility] Immunizations Immunization Date Immunization Notes Care Provider Russ shafer 09-10-2022 influenza virus vacc ine, unspecified formulation Susan Rowe MD Work Phone: [facility] Payers Date Payer Category Payer Self-pay 2016 Medicaid [id number] 2016 Medicaid [id number] 2016 Medicaid [id number] 2011 Medicare [id number] 2011 Medicare [id number] 2011 Medicare [id number] Social History Date Type Detail Facility Start: 08-30-2013 Tobacco smoking status NHIS Never sm oker [facility] Start: 08-30-2013 Tobacco use and exposure Never used [facility] Start: 08-30-2013 Alcohol intake Not Asked [facility] Start: 1960 Sex Assigned At Not on file [facility] Exposure to SARS-CoV-2 (event) Not sure [facility] Exposure to SARS-CoV-2 (event) Unable to assess [facility] Start: 02-19-2021 End: 02-11-2025 History of Social function [facility] Start: 02-19-2021 End: 02-11-2025 Area Deprivation Index [facility] National Score (1-10 0), lower number is lower risk Not on file [facility] Clinical Notes 03-09-2021 to 02-11-2025 Patient Susan Delgado MD - 02/11/2025 1:24 PM EDTPatient Susan Delgado MD - 10/04/2024 8:15 AM Jessy Rowe MD - 08/16/2022 8:56 AM EDT Note Date & Type Note Facility 02-11-2025 Instructions Susan Rowe MD - 02/11/2025 1:31 PM EDT BONE MINERAL DENSITY PATIENT INSTRUCTIONS ========= Bone mineral density testing measures the amount of calcium in certain parts of your bones. This information determines how strong your bones are. The test is used to detect osteoporosis, a disease in which the bone's mineral content and density are low, increasing a person's risk of fractures. The lumbar spine (lower back) and the hip are the skeletal sites usually examined. For the test, remember that: 1. You cannot take this test if you are . 2. Eat a normal diet on the day of the test. 3. Take your medications as you normally would. 4. DO NOT take calcium supplements (such as Tums) for 24 hours before the test. 5. On the day of the test, leave valuables (jewelry or credit cards) at home. 6. The test should be performed prior to oral, rectal or IV contrast studies, or at least 7 days after any of these studies. For the test, you may be asked to wear a hospital gown. You will lie on your back, on a padded table, in a comfortable position. Generally, you can resume your usual activities immediately. documented in this encounter [facility] 02-11-2025 Note HNO ID: [id number] Author: SUSAN ROWE MD Service: ? Author Type: Physician Type: Progress Notes Filed: 02/11/2025 13:49 Note Text: This note was created using [employer]. Subjective Estephanie Richardson is a 64 year old female. RA For fu I am OK Left hand thumb area pain Sore Uses this more Joint pain worse on ipad Hand pains Getting nodules They are getting larger No headache No sob No chest pain No belly pain Gelling is there if not moving much Tends to be in bed and exercise Not much in terms of MS Review of Systems Objective There were no vitals taken for this visit. Physical Exam Constitutional: General: She is not in acute distress. Appearance: She is not ill-appearing or toxic-appearing. Comments: Hand nodule Wrist deformed Mcp swelling Deformed hand Assessment and Plan Some elements of this note have been copied from my earlier notes, the present note has been updated where appropriate and my reflects my current medical decision making from today. First visit 02/19/2021 (all visit distant distant visitso far ) ( right handed ) ( lives in skilled living facility at present ) 02/11/2025 Rheum ( not seen for few yr) prior to visit Dr Freitas 2007 Dr [facility] [place] [id number] : RA 1987 diagnosis ( age 18 onset ) (severe destructive RA) ( RA nodules ) 02/2021 RF >120 ESR 26 mm high (>20) uric acid 4.1mg/dl ( no Raynaud's Phenomenon No DVT never preg ) ( no photosensitivity ) (( 01/2021 first visit, RA before remission and then 10/2020 flare with COVID, and visit for same ) (most affective joints are the knee and hand inner ) (( NOT ABLE TO WALK AFTER COVID) TREATMENT Prednisone age 18 to 58 was rare and intermittent. pred 5 mg 10/2020 started,03/07/2021 pred 2.5 mg. 05/11/2021 pred stop ( T score -4 per patient) Fosamax 35 mg weekly 02/19/2021 Gold shot done OFF sulfasalazine done OFF ( does not like needles ) 05/11/2021 ( not able to pay for med unless insurance covers fully ) (does not want xelzanz not mobile and poor tolerance to shingles ) ( high risk of DVT ) (NOT WANTING FREQUENT LABS )) ON HIGHER DOSES and needs labs every three months. MTX (1997 started ) (periods of time no health insurance and did not take med) best [id number] 12.5 mg weekly : 02/19/2021 MTX 20 mg weekly 11/15/2021 MTX 25 mg weekly. plaquenil 300 mg started 05/11/2021 (( last optha 2022 ?? Not sure ) celebrex 200 mg daily.05/17/22 02/11/2025 severe RA limited to choices , keep same tt see in 3 months ( as mentioned above does not want any additional tt 0 Drug and disease monitoring 02/2021 cmp cbc normal Sicca ( attributes to dryness in facility ) 02/19/2021 Lumbar radiculopathy 10/04/202408/2024 episode , and now resolved Right elbow bursa 2019 onset ( nodule vs effusion ) (large appears to be 7 cm diameter large) ( aspiration attempted twice and no fluid ) per patient 03/07/2021 03/07/2021 send to ortho. ( did not go, not comfortable with any intervention) KNee OA ( per patient bone on bone ) 02/19/2021 Swelling in legs ( edema ) 2018 onset 02/19/2021 Ht 5'3' now 5'0 Wt 275 02/19/2021 304 10/2021 ( [place] Hospital bed Snores ( per ) ( no sleep study ) 02/19/2021 Shingles 07/2013 (neck left side, residual scarring ) (one time ) : : 02/14/2022 need to get vaccine done. Recurrent infection : 02/12 get labs, pneumococcal vaccine ( age 54 was done ) Ambulation issue : 10/2020 unable to walk, using walker and leans over and puts wt on elbow and forearm . 10/2020 PT done for this issue, and suspended as cannot bear wt on the knee ( for bathroom using sit to stand device ) Walker use 10/2020, 11/13 cannot use walker (10/2020 not able to walk, even with walker is not able to walk, after COVID 10/2020 (COVID isolation for one months ), severe deconditioning, several PT sessions done ) ( needs PT to walk with her to bathroom, cannot do alone ) ( restorative therapy planned 08/16/2021 ) (11/15/2021 still unable to walk, restorative therapy never done and told till not accomplish goals ( group home has not hired anyone for this purpose ) (still with bowel and urinary continence ) 08/15 unchanged status . ( Does do exercise on her own, able to sit up on the bed ) ( cannot shower on her own, need help with bathing activity ) 10/04/2024 not walked since 10/2020 bed ridden or just power chair bound, at present status quo. Osteoporosis ( mom with osteoporosis) (( 2023 nov :: no fx in life, ht loss 5'2 01/25 and now is 5'00 )) 07/2021 DXA right forearm 0.466 -4.8 left 0.516 -3.1 no comparison 05/11/2021 fosamax 70 mg started. 11/15/2021 lack of ambulation, progressive risk. 10/04/2024 dxa ordered , pt not keen on getting this done. Loss of bone density is like profound from lack of mobility, stop fosamax on 04/2027 ( after total 6 yr of use ) 10/04/2024 02/11/2025 ordered Pain mgt : Tramadol 50 (more content not included)... [facility] 02-11-2025 History of Presen t illness Narrative This note was created using [employer]. Subjective Estephanie Richardson is a 64 year old female. RA For fu I am OK Left hand thumb area pain Sore Uses this more Joint pain worse on ipad Hand pains Getting nodules They are getting larger No headache No sob No chest pain No belly pain Gelling is there if not moving much Tends to be in bed and exercise Not much in terms of MS Review of Systems Objective There were no vitals taken for this visit. Physical Exam Constitutional: General: She is not in acute distress. Appearance: She is not ill-appearing or toxic-appearing. Comments: Hand nodule Wrist deformed Mcp swelling Deformed hand Assessment and Plan Some elements of this note have been copied from my earlier notes, the present note has been updated where appropriate and my reflects my current medical decision making from today. First visit 02/19/2021 (all visit distant distant visitso far ) ( right handed ) ( lives in skilled living facility at present ) 02/11/2025 Rheum ( not seen for few yr) prior to visit Dr Freitas 2007 Dr [facility] [place] [phone] : RA 1987 diagnosis ( age 18 onset ) (severe destructive RA) ( RA nodules ) 02/2021 RF >120 ESR 26 mm high (>20) uric acid 4.1mg/dl ( no Raynaud's Phenomenon No DVT never preg ) ( no photosensitivity ) (( 01/2021 first visit, RA before remission and then 10/2020 flare with COVID, and visit for same ) (most affective joints are the knee and hand inner ) (( NOT ABLE TO WALK AFTER COVID) TREATMENT Prednisone age 18 to 58 was rare and intermittent. pred 5 mg 10/2020 started,03/07/2021 pred 2.5 mg. 05/11/2021 pred stop ( T score -4 per patient) Fosamax 35 mg weekly 02/19/2021 Gold shot done OFF sulfasalazine done OFF ( does not like needles ) 05/11/2021 ( not able to pay for med unless insurance covers fully ) (does not want xelzanz not mobile and poor tolerance to shingles ) ( high risk of DVT ) (NOT WANTING FREQUENT LABS )) ON HIGHER DOSES and needs labs every three months. MTX (1997 started ) (periods of time no health insurance and did not take med) best [id number] 12.5 mg weekly : 02/19/2021 MTX 20 mg weekly 11/15/2021 MTX 25 mg weekly. plaquenil 300 mg started 05/11/2021 (( last optha 2022 ?? Not sure ) celebrex 200 mg daily.05/17/22 02/11/2025 severe RA limited to choices , keep same tt see in 3 months ( as mentioned above does not want any additional tt 0 Drug and disease monitoring 02/2021 cmp cbc normal Sicca ( attributes to dryness in facility ) 02/19/2021 Lumbar radiculopathy 10/04/202408/2024 episode , and now resolved Right elbow bursa 2019 onset ( nodule vs effusion ) (large appears to be 7 cm diameter large) ( aspiration attempted twice and no fluid ) per patient 03/07/2021 03/07/2021 send to ortho. ( did not go, not comfortable with any intervention) KNee OA ( per patient bone on bone ) 02/19/2021 Swelling in legs ( edema ) 2018 onset 02/19/2021 Ht 5'3' now 5'0 Wt 275 02/19/2021 304 10/2021 [place] Hospital bed Snores ( per ) ( no sleep study ) 02/19/2021 Shingles 07/2013 (neck left side, residual scarring ) (one time ) : : 02/14/2022 need to get vaccine done. Recurrent infection : 02/12 get labs, pneumococcal vaccine ( age 54 was done ) Ambulation issue : 10/2020 unable to walk, using walker and leans over and puts wt on elbow and forearm . 10/2020 PT done for this issue, and suspended as cannot bear wt on the knee ( for bathroom using sit to stand device ) Walker use 10/2020, 11/13 cannot use walker (10/2020 not able to walk, even with walker is not able to walk, after COVID 10/2020 (COVID isolation for one months ), severe deconditioning, several PT sessions done ) ( needs PT to walk with her to bathroom, cannot do alone ) ( restorative therapy planned 08/16/2021 ) (11/15/2021 still unable to walk, restorative therapy never done and told till not accomplish goals ( group home has not hired anyone for this purpose ) (still with bowel and urinary continence ) 08/15 unchanged status . ( Does do exercise on her own, able to sit up on the bed ) ( cannot shower on her own, need help with bathing activity ) 10/04/2024 not walked since 10/2020 bed ridden or just power chair bound, at present status quo. Osteoporosis ( mom with osteoporosis) (( 2023 nov :: no fx in life, ht loss 5'2 01/25 and now is 5'00 )) 07/2021 DXA right forearm 0.466 -4.8 left 0.516 -3.1 no comparison 05/11/2021 fosamax 70 mg started. 11/15/2021 lack of ambulation, progressive risk. 10/04/2024 dxa ordered , pt not keen on getting this done. Loss of bone density is like profound from lack of mobility, stop fosamax on 04/2027 ( after total 6 yr of use ) 10/04/2024 02/11/2025 ordered Pain mgt : Tramadol 50 mg given relief, at time no relief started 10/2020 Brief Personal and family history: COVID 10/2020 (11/10/2020 loss of appetites, diarrhea few day, loss of strength, loss of smell taste ) ( no sob but cough which lead to testing ) ( was on quarantine ) ( joint pains started with COVID, about one week before ) COVID 11/2021 ( repeat ) recovered ( monoclonal ab done ) (family members all vaccination done, getting recurrent infection from [place] ) Pain mgt : ( pain risk assesment 02/19/2021) Codeine nausea and vomiting OFF Tramadol at present 02/19/2021 (2020 went Off) )FF celebrex 200 mg daily ( 08/2025) (nurses have to give her med, she has no access to them ) 02/19/2021 (they watch her take it) Tylenol 325 mg 2 am regular and then Q 8 on prn basis 10/04/2024 Brief Personal and family history: (( was living alone after , did have mobility issue )) 08/15 [place]illed [place] facility 08/[place] ( [facility] plans ) 08/15 2011 ( used to help her with ambulation and then had to move into facility ) 08/15 Never smoked no ETOH 08/15 No children 08/15 One sister 61 arthritis HTN 02/19/2021 One brother 56 healthy 02/19/2021 Mom 82 02/19/2021 arthritis, HTN ( mom never smoked) 08/15 ((lives with in assisted living near patient, her has medical issue, and with dementia ) 08/15 Mother's sister 500 lbs ( large women in family ) 08/15 Father ( no info ) ( his mother had RA ) (70 2006 ) ( smoker ? ) (lung cancer cause of ) Worked for couple and exposed to cigarette smoking 1989 This is a virtual visit. It required patient provider interaction for the medical decision making as documented below . .I have communicated my name and active licensure. The patient's identity and physical location were verified at the time of this visit. Either the patient or their legal distribution sales representative has been informed of the risks and benefits of -- and alternatives to -- treatment through a remote evaluation and consents to proceed with the evaluation remotely. documented in this encounter [facility] 10-04-2024 Instructions Susan Rowe MD - 10/04/2024 8:20 AM EST BONE MINERAL DENSITY PATIENT INSTRUCTIONS ========= Bone mineral density testing measures the amount of calcium in certain parts of your bones. This information determines how strong your bones are. The test is used to detect osteoporosis, a disease in which the bone's mineral content and density are low, increasing a person's risk of fractures. The lumbar spine (lower back) and the hip are the skeletal sites usually examined. For the test, remember that: 1. You cannot take this test if you are . 2. Eat a normal diet on the day of the test. 3. Take your medications as you normally would. 4. DO NOT take calcium supplements (such as Tums) for 24 hours before the test. 5. On the day of the test, leave valuables (jewelry or credit cards) at home. 6. The test should be performed prior to oral, rectal or IV contrast studies, or at least 7 days after any of these studies. For the test, you may be asked to wear a hospital gown. You will lie on your back, on a padded table, in a comfortable position. Generally, you can resume your usual activities immediately. documented in this encounter [facility] 10-04-2024 Note HNO ID: [id number] Author: SUSAN ROWE MD Service: ? Author Type: Physician Type: Progress Notes Filed: 10/04/2024 10:01 Note Text: This note was created using [employer]. Subjective Estephanie Richardson is a 63 year old female. 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 Physical Exam Constitutional: General: She is not in acute distress. Appearance: She is not ill-appearing or toxic-appearing. Comments: Shoulder near normal range of motion Elbow nodules bursitis large bilateral wrist subluxated Hand RA deformity Swelling noted MCP joint Assessment and Plan First visit 02/19/2021 (all visit distant distant visitso far ) 08/15 ( right handed ) ( lives in skilled living facility at present ) 08/15 RA 1985 diagnosis ( age 18 onset ) (severe destructive RA) 02/2021 RF >120 ESR 26 mm high (>20) uric acid 4.1mg/dl Rheum ( not seen for few yr) Dr Freitas 2007 Dr [facility] [place] [phone] : ( no Raynaud's Phenomenon No DVT never preg ) ( no photosensitivity ) (( 01/2021 first visit, RA before remission and then 10/2020 flare with COVID, and visit for same ) (most affective joints are the knee and hand inner ) (( NOT ABLE TO WALK AFTER COVID) TREATMENT Prednisone age 18 to 58 was rare and intermittent. pred 5 mg 10/2020 started,03/07/2021 pred 2.5 mg. 05/11/2021 pred stop ( T score -4 per patient) Fosamax 35 mg weekly 02/19/2021 Gold shot done OFF sulfasalazine done OFF MTX (1997 started ) (periods of time no health insurance and did not take med) [facility] [phone] 12.5 mg weekly : 02/19/2021 MTX 20 mg weekly 11/15/2021 MTX 25 mg weekly. plaquenil 300 mg started 05/11/2021 (( last optha 2022 ?? Not sure ) celebrex 200 mg daily.05/17/22 ( does not like needles ) 05/11/2021 ( not able to pay for med unless insurance covers fully ) (does not want xelzanz not mobile and poor tolerance to shingles ) ( high risk of DVT ) 11/15/2021 05/17/22 severe RA, declining healthy status, and limited to treatment choices. (NOT WANTING FREQUENT LABS )) ON HIGHER DOSES and needs labs every three months. 10/04/2024 prolonged absence, severe RA, high risk of decompensation as issue with follow up, labs immobility social circumstance beyond her control, also long standing RA. Drug and disease monitoring 02/2021 cmp cbc normal Sicca ( attributes to dryness in facility ) 02/19/2021 Lumbar radiculopathy 10/04/202408/2024 episode , and now resolved Right elbow bursa 2019 onset ( nodule vs effusion ) (large appears to be 7 cm diameter large) ( aspiration attempted twice and no fluid ) per patient 03/07/2021 03/07/2021 send to ortho. ( did not go, not comfortable with any intervention) KNee OA ( per patient bone on bone ) 02/19/2021 Swelling in legs ( edema ) 2018 onset 02/19/2021 Ht 5'3' now 5'0 Wt 275 02/19/2021 304 10/2021 ( [place] Hospital bed Snores ( per ) ( no sleep study ) 02/19/2021 Shingles 07/2013 (neck left side, residual scarring ) (one time ) : : 02/14/2022 need to get vaccine done. Recurrent infection : 02/12 get labs, pneumococcal vaccine ( age 54 was done ) Ambulation issue : 10/2020 unable to walk, using walker and leans over and puts wt on elbow and forearm . 10/2020 PT done for this issue, and suspended as cannot bear wt on the knee ( for bathroom using sit to stand device ) Walker use 10/2020, 11/13 cannot use walker (10/2020 not able to walk, even with walker is not able to walk, after COVID 10/2020 (COVID isolation for one months ), severe deconditioning, several PT sessions done ) ( needs PT to walk with her to bathroom, cannot do alone ) ( restorative therapy planned 08/16/2021 ) (11/15/2021 still unable to walk, restorative therapy never done and told till not accomplish goals ( group home has not hired anyone for this purpose ) (still with bowel and urinary continence ) 08/15 unchanged status . ( Does do exercise on her own, able to sit up on the bed ) ( cannot shower on her own, need help with bathing activity ) 10/04/2024 not walked since 10/2020 bed ridden or just power chair bound, at present status quo. Osteoporosis ( mom with osteoporosis) (( 2023 nov :: no fx in life, ht loss 5'2 3/4 and now is 5'00 )) 07/2021 DXA right forearm 0.466 -4.8 left 0.516 -3.1 no comparison 05/11/2021 fosamax 70 mg started. 11/15/2021 lack of ambulation, progressive risk. 10/04/2024 dxa ordered , pt not keen on getting this done. Loss of bone density is like profound from lack of mobility, stop fosamax on 04/2027 ( after total 6 yr of (more content not included)... [facility] 10-04-2024 History of Presen t illness Narrative This note was created using [employer]. Subjective Estephanie Richardson is a 63 year old female. 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 Physical Exam Constitutional: General: She is not in acute distress. Appearance: She is not ill-appearing or toxic-appearing. Comments: Shoulder near normal range of motion Elbow nodules bursitis large bilateral wrist subluxated Hand RA deformity Swelling noted MCP joint Assessment and Plan First visit 02/19/2021 (all visit distant distant visitso far ) 08/15 ( right handed ) ( lives in skilled living facility at present ) 08/15 RA 1985 diagnosis ( age 18 onset ) (severe destructive RA) 02/2021 RF >120 ESR 26 mm high (>20) uric acid 4.1mg/dl Rheum ( not seen for few yr) Dr Freitas 2007 Dr [facility] [place] [phone] : ( no Raynaud's Phenomenon No DVT never preg ) ( no photosensitivity ) (( 01/2021 first visit, RA before remission and then 10/2020 flare with COVID, and visit for same ) (most affective joints are the knee and hand inner ) (( NOT ABLE TO WALK AFTER COVID) TREATMENT Prednisone age 18 to 58 was rare and intermittent. pred 5 mg 10/2020 started,03/07/2021 pred 2.5 mg. 05/11/2021 pred stop ( T score -4 per patient) Fosamax 35 mg weekly 02/19/2021 Gold shot done OFF sulfasalazine done OFF MTX (1997 started ) (periods of time no health insurance and did not take med) best [id number] 12.5 mg weekly : 02/19/2021 MTX 20 mg weekly 11/15/2021 MTX 25 mg weekly. plaquenil 300 mg started 05/11/2021 (( last optha 2022 ?? Not sure ) celebrex 200 mg daily.05/17/22 ( does not like needles ) 05/11/2021 ( not able to pay for med unless insurance covers fully ) (does not want xelzanz not mobile and poor tolerance to shingles ) ( high risk of DVT ) 11/15/2021 05/17/22 severe RA, declining healthy status, and limited to treatment choices. (NOT WANTING FREQUENT LABS )) ON HIGHER DOSES and needs labs every three months. 10/04/2024 prolonged absence, severe RA, high risk of decompensation as issue with follow up, labs immobility social circumstance beyond her control, also long standing RA. Drug and disease monitoring 02/2021 cmp cbc normal Sicca ( attributes to dryness in facility ) 02/19/2021 Lumbar radiculopathy 10/04/202408/2024 episode , and now resolved Right elbow bursa 2019 onset ( nodule vs effusion ) (large appears to be 7 cm diameter large) ( aspiration attempted twice and no fluid ) per patient 03/07/2021 03/07/2021 send to ortho. ( did not go, not comfortable with any intervention) KNee OA ( per patient bone on bone ) 02/19/2021 Swelling in legs ( edema ) 2018 onset 02/19/2021 Ht 5'3' now 5'0 Wt 275 02/19/2021 304 10/2021 ( [place] Hospital bed Snores ( per ) ( no sleep study ) 02/19/2021 Shingles 07/2013 (neck left side, residual scarring ) (one time ) : : 02/14/2022 need to get vaccine done. Recurrent infection : 02/12 get labs, pneumococcal vaccine ( age 54 was done ) Ambulation issue : 10/2020 unable to walk, using walker and leans over and puts wt on elbow and forearm . 10/2020 PT done for this issue, and suspended as cannot bear wt on the knee ( for bathroom using sit to stand device ) Walker use 10/2020, 11/13 cannot use walker (10/2020 not able to walk, even with walker is not able to walk, after COVID 10/2020 (COVID isolation for one months ), severe deconditioning, several PT sessions done ) ( needs PT to walk with her to bathroom, cannot do alone ) ( restorative therapy planned 08/16/2021 ) (11/15/2021 still unable to walk, restorative therapy never done and told till not accomplish goals ( group home has not hired anyone for this purpose ) (still with bowel and urinary continence ) 08/15 unchanged status . ( Does do exercise on her own, able to sit up on the bed ) ( cannot shower on her own, need help with bathing activity ) 10/04/2024 not walked since 10/2020 bed ridden or just power chair bound, at present status quo. Osteoporosis ( mom with osteoporosis) (( 2023 nov :: no fx in life, ht loss 5'2 3/4 and now is 5'00 )) 07/2021 DXA right forearm 0.466 -4.8 left 0.516 -3.1 no comparison 05/11/2021 fosamax 70 mg started. 11/15/2021 lack of ambulation, progressive risk. 10/04/2024 dxa ordered , pt not keen on getting this done. Loss of bone density is like profound from lack of mobility, stop fosamax on 04/2027 ( after total 6 yr of use ) 10/04/2024 Pain mgt : Tramadol 50 mg given relief, at time no relief started 10/2020 Brief Personal and family history: COVID 10/2020 (11/10/2020 loss of appetites, diarrhea few day, loss of strength, loss of smell taste ) ( no sob but cough which lead to testing ) ( was on quarantine ) ( joint pains started with COVID, about one week before ) COVID 11/2021 ( repeat ) recovered ( monoclonal ab done ) (family members all vaccination done, [place] infection from [place] staff ) Pain mgt : ( pain risk assesment 02/19/2021) Codeine nausea and vomiting OFF Tramadol at present 02/19/2021 (2020 went Off) )FF celebrex 200 mg daily ( 08/2025) (nurses have to give her med, she has no access to them ) 02/19/2021 (they watch her take it) Tylenol 325 mg 2 am regular and then Q 8 on prn basis 10/04/2024 Brief Personal and family history: (( was living alone after , did have mobility issue )) 08/15 [place] 08/[place] ( [facility] plans ) 08/15 2011 ( used to help her with ambulation and then had to move into facility ) 08/15 Never smoked no ETOH 08/15 No children 08/15 One sister 61 arthritis HTN 02/19/2021 One brother 56 healthy 02/19/2021 Mom 82 02/19/2021 arthritis, HTN ( mom never smoked) 08/15 ((lives with in assisted living near patient, her has medical issue, and with dementia ) 08/15 Mother's sister 500 lbs ( large women in family ) 08/15 Father ( no info ) ( his mother had RA ) (70 2006 ) ( smoker ? ) (lung cancer cause of ) Worked for couple and exposed to cigarette smoking 1989 This is a virtual visit. It required patient provider interaction for the medical decision making as documented below . .I have communicated my name and active licensure. The patient's identity and physical location were verified at the time of this visit. Either the patient or their legal distribution sales representative has been informed of the risks and benefits of -- and alternatives to -- treatment through a remote evaluation and consents to proceed with the evaluation remotely. documented in this encounter [facility] 08-16-2022 History of Presen t illness Narrative This note was created using [employer]. Subjective Estephanie Richardson is a 61 year old female. I am fine Just last time same as before Arthritis same as before Not with any ache pain Lower ext pain edema related Wrist pain at time Used brace few day in the past Not with neck pain low back pain at present No sob or chest pain Review of Systems Objective There were no vitals taken for this visit. Physical Exam Constitutional: General: She is not in acute distress. Appearance: She is not ill-appearing or toxic-appearing. Musculoskeletal: Comments: Decreased range of motion wrist Hand flexor deformity MCP swelling Assessment and Plan First visit 02/19/2021 (all visit distant distant visitso far ) 08/15 ( right handed ) ( lives in skilled living facility at present ) 08/15 RA 1985 diagnosis ( age 18 onset ) (severe destructive RA) 02/2021 RF >120 ESR 26 mm high (>20) uric acid 4.1mg/dl Rheum ( not seen for few yr) Dr Feritas 2006 Dr [facility] [place] [phone] : ( no Raynaud's Phenomenon No DVT never preg ) ( no photosensitivity ) (( 01/2021 first visit, RA before remission and then 10/2020 flare with COVID, and visit for same ) (most affective joints are the knee and hand inner ) (( NOT ABLE TO WALK AFTER COVID) TREATMENT Prednisone age 18 to 58 was rare and intermittent. pred 5 mg 10/2020 started,03/07/2021 pred 2.5 mg. 05/11/2021 pred stop ( T score -4 per patient) Fosamax 35 mg weekly 02/19/2021 Gold shot done OFF sulfasalazine done OFF MTX (1997 started ) (periods of time no health insurance and did not take med) [facility] [phone] 12.5 mg weekly : 02/19/2021 MTX 20 mg weekly 11/15/2021 MTX 25 mg weekly. plaquenil 300 mg started 05/11/2021 celebrex 200 mg daily.05/17/22 ( does not like needles ) 05/11/2021 ( not able to pay for med unless insurance covers fully ) (does not want xelzanz not mobile and poor tolerance to shingles ) 11/15/2021 05/17/22 severe RA, declining healthy status, and limited to treatment choices. (NOT WANTING FREQUENT LABS )) ON HIGHER DOSES and needs labs every three months. 08/15 observe stable. Drug and disease monitoring 02/2021 cmp cbc normal Sicca ( attributes to dryness in facility ) 02/19/2021 Right elbow bursa 2019 onset ( nodule vs effusion ) (large appears to be 7 cm diameter large) ( aspiration attempted twice and no fluid ) per patient 03/07/2021 03/07/2021 send to ortho. ( did not go, not comfortable with any intervention) KNee OA ( per patient bone on bone ) 02/19/2021 Swelling in legs ( edema ) 2018 onset 02/19/2021 Ht 5'3' now 5'0 Wt 275 02/19/2021 304 10/2021 ( [place] Hospital bed Snores ( per ) ( no sleep study ) 02/19/2021 Shingles 07/2013 (neck left side, residual scarring ) (one time ) : : 02/14/2022 need to get vaccine done. Recurrent infection : 02/12 get labs, pneumococcal vaccine ( age 54 was done ) Ambulation issue : 10/2020 unable to walk, using walker and leans over and puts wt on elbow and forearm . 10/2020 PT done for this issue, and suspended as cannot bear wt on the knee ( for bathroom using sit to stand device ) Walker use 10/2020, 11/13 cannot use walker (10/2020 not able to walk, even with walker is not able to walk, after COVID 10/2020 (COVID isolation for one months ), severe deconditioning, several PT sessions done ) ( needs PT to walk with her to bathroom, cannot do alone ) ( restorative therapy planned 08/16/2021 ) (11/15/2021 still unable to walk, restorative therapy never done and told till not accomplish goals ( group home has not hired anyone for this purpose ) (still with bowel and urinary continence ) 08/15 unchanged status . ( Does do exercise on her own, able to sit up on the bed ) ( cannot shower on her own, need help with bathing activity ) Osteoporosis ( mom with osteoporosis) 07/2021 DXA right forearm 0.466 -4.8 left 0.516 -3.1 no comparison 05/11/2021 fosamax 70 mg started. 11/15/2021 lack of ambulation, progressive risk. Pain mgt : Tramadol 50 mg given relief, at time no relief started 10/2020 Brief Personal and family history: COVID 10/2020 (11/10/2020 loss of appetites, diarrhea few day, loss of strength, loss of smell taste ) ( no sob but cough which lead to testing ) ( was on quarantine ) ( joint pains started with COVID, about one week before ) COVID 11/2021 ( repeat ) recovered ( monoclonal ab done ) (family members all vaccination done, getting recurrent infection from [place] staff ) Pain mgt : ( pain risk assesment 02/19/2021) Codeine nausea and vomiting OFF Tramadol at present 02/19/2021 (2020 went Off) )FF celebrex 200 mg daily ( 08/2025) (nurses have to give her med, she has no access to them ) 02/19/2021 (they watch her take it) Brief Personal and family history: (( was living alone after , did have mobility issue )) 08/15 Skilled [place]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 ) (lung cancer cause of ) Worked for couple and exposed to cigarette smoking 1989 COVID (3) Pfizer done 10/03/21 done ( still developed COVID ) 08/15 Booster pending documented in this encounter [facility] 06-11-2022 Miscellaneous Notes I appreciate your assistance. My Methotrexate prescription renewal needs to be faxed to the [facility]. The fax number is [phone]. The [facility] staff will notify the pharmacy. If you have any questions the [facility] s main phone number is [phone]. Script printed please fax Susan Rowe MD documented in this encounter [facility] 06-10-2022 Miscellaneous Notes Patient sent a appening message requesting the following refill. Pending Prescriptions Disp Refills METHOTREXATE SODIUM 2.5 MG TABLET 120 tablet 0 Sig: Take 10 tablets by mouth every Friday. as directed. [place]: No Patient last appointment: 05/17/2022 Next Appointment: 08/16/2022 Patient Phone numbers: [phone] (home) Request is for script(s) to be escript to pharmacy. Jacquelyn Delarosa LPN documented in this encounter [facility] 05-17-2022 History of Presen t illness Narrative This note was created using [employer]. Subjective Estephanie Richardson is a 61 year old female. Lasix new onset Cellulitis Suspected given antibiotic and better 3 week for one week given Left leg Red and tender to touch Not running fever arthritis same Normal No pain at present Not able to walk since 10/2020 Wants to see if can lab rarely Severe pain and does not want to get this done . Review of Systems Objective There were no vitals taken for this visit. Physical Exam Constitutional: General: She is not in acute distress. Appearance: She is not ill-appearing or toxic-appearing. Musculoskeletal: Comments: Synovitis MCP pip Loss of muscle mas bilateral Assessment and Plan First visit 02/19/2021 (all visit distant distant visitso far ) 08/16/2021 ( right handed ) ( lives in skilled living facility at present ) RA 1985 diagnosis ( age 18 onset ) (severe destructive RA) 02/2021 RF >120 ESR 26 mm high (>20) uric acid 4.1mg/dl Rheum ( not seen for few yr) Dr Freitas 2007 Dr [facility] [place] [phone] : ( no Raynaud's Phenomenon No DVT never preg ) ( no photosensitivity ) (( 01/2021 first visit, RA before remission and then 10/2020 flare with COVID, and visit for same ) (most affective joints are the knee and hand inner ) (( NOT ABLE TO WALK AFTER COVID) TREATMENT Prednisone age 18 to 58 was rare and intermittent. pred 5 mg 10/2020 started,03/07/2021 pred 2.5 mg. 05/11/2021 pred stop ( T score -4 per patient) Fosamax 35 mg weekly 02/19/2021 Gold shot done OFF sulfasalazine done OFF MTX (1997 started ) (periods of time no health insurance and did not take med) best [id number] 12.5 mg weekly : 02/19/2021 MTX 20 mg weekly 11/15/2021 MTX 25 mg weekly. plaquenil 300 mg started 05/11/2021 celebrex 200 mg daily.05/17/22 ( does not like needles ) 05/11/2021 ( not able to pay for med unless insurance covers fully ) (does not want xelzanz not mobile and poor tolerance to shingles ) 11/15/2021 05/17/22 severe RA, declining healthy status, and limited to treatment choices. (NOT WANTING FREQUENT LABS )) ON HIGHER DOSES and needs labs every three months. (( cellulitis issue, on camera view did not see any, unless fever keep on current med ) Drug and disease monitoring 02/2021 cmp cbc normal Sicca ( attributes to dryness in facility ) 02/19/2021 Right elbow bursa 2019 onset ( nodule vs effusion ) (large appears to be 7 cm diameter large) ( aspiration attempted twice and no fluid ) per patient 03/07/2021 03/07/2021 send to ortho. ( did not go, not comfortable with any intervention) KNee OA ( per patient bone on bone ) 02/19/2021 Swelling in legs ( edema ) 2018 onset 02/19/2021 Ht 5'3' now 5'0 Wt 275 02/19/2021 304 10/2021 ( [place] Hospital bed Snores ( per ) ( no sleep study ) 02/19/2021 Shingles 07/2013 (neck left side, residual scarring ) (one time ) : : 02/14/2022 need to get vaccine done. Recurrent infection : 02/12 get labs, pneumococcal vaccine ( age 54 was done ) Ambulation issue : 10/2020 unable to walk, using walker and leans over and puts wt on elbow and forearm . 10/2020 PT done for this issue, and suspended as cannot bear wt on the knee ( for bathroom using sit to stand device ) Walker use 10/2020, 11/13 cannot use walker (10/2020 not able to walk, even with walker is not able to walk, after COVID 10/2020 (COVID isolation for one months ), severe deconditioning, several PT sessions done ) ( needs PT to walk with her to bathroom, cannot do alone ) ( restorative therapy planned 08/16/2021 ) (11/15/2021 still unable to walk, restorative therapy never done and told till not accomplish goals ( group home has not hired anyone for this purpose ) (still with bowel and urinary continence ) 11/15/2021 Osteoporosis ( mom with osteoporosis) 07/2021 DXA right forearm 0.466 -4.8 left 0.516 -3.1 no comparison 05/11/2021 fosamax 70 mg started. 11/15/2021 lack of ambulation, progressive risk. Pain mgt : Tramadol 50 mg given relief, at time no relief started 10/2020 Brief Personal and family history: COVID 10/2020 (11/10/2020 loss of appetites, diarrhea few day, loss of strength, loss of smell taste ) ( no sob but cough which lead to testing ) ( was on quarantine ) ( joint pains started with COVID, about one week before ) COVID 11/2021 ( repeat ) recovered ( monoclonal ab done ) (family members all vaccination done, getting recurrent infection from NH staff ) Pain mgt : ( pain risk assesment 02/19/2021) Codeine nausea and vomiting OFF Tramadol at present 02/19/2021 (2020 went Off) )FF celebrex 200 mg daily ( 08/2025) (nurses have to give her med, she has no access to them ) 02/19/2021 (they watch her take it) Brief Personal and family history: (( was living alone after , did have mobility issue )) Skilled NH facility 08/2015 ( jail plans ) 2011 ( used to help her with ambulation and then had to move into facility ) Never smoked no ETOH No children One sister 61 arthritis HTN 02/19/2021 One brother 56 healthy 02/19/2021 Mom 82 02/19/2021 arthritis, HTN ( mom never smoked) ((lives with in assisted living near patient, her has medical issue, and with dementia ) Mother's sister 500 lbs ( large women in family ) Father ( no info ) ( his mother had RA ) (70 2006 ) ( smoker ? ) (lung cancer cause of ) Worked for couple and exposed to cigarette smoking 1989 COVID (3) Pfizer done 10/03/21 done ( still developed COVID ) , get 4 th shot, skip MTX for one week 05/17/22 patient could not focus the camera on the legs for me to take look at the elgs documented in this encounter [facility] 02-14-2022 Miscellaneous Notes I have sent a fax with all of the information from check out note as she is in a facility. I have also sent a [employer] message to the patient. Yessica Lyles Return in about 3 months (around 05/17/2022). Check out comments: Please have NH give her another Pfizer shot for COVID ( hold MTX for one week) Get labs done recently need reports Get labs done in 2 months. See her back in three months. documented in this encounter [facility] 02-14-2022 History of Presen t illness Narrative This note was created using NoteWriter. Subjective Estephanie Richardson is a 61 year old female. No breathing issue at present Recovered from COVID Before initial covid severe flare And now mild flare Last 4 day flare, using right wrist flare Using tylenol for pain Lower ext swelling Every thing else is good . No side effect with current med Review of Systems Objective There were no vitals taken for this visit. Physical Exam Assessment and Plan First visit 02/19/2021 (all visit distant distant visitso far ) 08/16/2021 ( right handed ) ( lives in skilled living facility at present ) RA 1985 diagnosis ( age 18 onset ) (severe destructive RA) 02/2021 RF >120 ESR 26 mm high (>20) uric acid 4.1mg/dl Rheum ( not seen for few yr) Dr Freitas 2007 Dr [facility] [place] [phone] : ( no Raynaud's Phenomenon No DVT never preg ) ( no photosensitivity ) (( 01/2021 first visit, RA before remission and then 10/2020 flare with COVID, and visit for same ) (most affective joints are the knee and hand inner ) (( NOT ABLE TO WALK AFTER COVID) TREATMENT Prednisone age 18 to 58 was rare and intermittent. pred 5 mg 10/2020 started,03/07/2021 pred 2.5 mg. 05/11/2021 pred stop ( T score -4 per patient) Fosamax 35 mg weekly 02/19/2021 Gold shot done OFF sulfasalazine done OFF MTX (1997 started ) (periods of time no health insurance and did not take med) best [id number] 12.5 mg weekly : 02/19/2021 MTX 20 mg weekly 11/15/2021 MTX 25 mg weekly. plaquenil 300 mg started 05/11/2021 ( does not like needles ) 05/11/2021 ( not able to pay for med unless insurance covers fully ) (does not want xelzanz not mobile and poor tolerance to shingles ) 11/15/2021 severe RA, declining healthy status, and limited to treatment choices. Drug and disease monitoring 02/2021 cmp cbc normal Sicca ( attributes to dryness in facility ) 02/19/2021 Right elbow bursa 2019 onset ( nodule vs effusion ) (large appears to be 7 cm diameter large) ( aspiration attempted twice and no fluid ) per patient 03/07/2021 03/07/2021 send to ortho. ( did not go, not comfortable with any intervention) KNee OA ( per patient bone on bone ) 02/19/2021 Swelling in legs ( edema ) 2018 onset 02/19/2021 Ht 5'3' now 5'0 Wt 275 02/19/2021 304 10/20[place] Hospital bed Snores ( per ) ( no sleep study ) 02/19/2021 Shingles 2020 : 02/14/2022 need to get vaccine done. Recurrent infection : 02/12 get labs, pneumococcal vaccine not done. Ambulation issue : 10/2020 unable to walk, using walker and leans over and puts wt on elbow and forearm . 10/2020 PT done for this issue, and suspended as cannot bear wt on the knee ( for bathroom using sit to stand device ) Walker use 10/2020, 11/13 cannot use walker (10/2020 not able to walk, even with walker is not able to walk, after COVID 10/2020 (COVID isolation for one months ), severe deconditioning, several PT sessions done ) ( needs PT to walk with her to bathroom, cannot do alone ) ( restorative therapy planned 08/16/2021 ) (11/15/2021 still unable to walk, restorative therapy never done and told till not accomplish goals ( group home has not hired anyone for this purpose ) (still with bowel and urinary continence ) 11/15/2021 Osteoporosis ( mom with osteoporosis) 07/2021 DXA right forearm 0.466 -4.8 left 0.516 -3.1 no comparison 05/11/2021 fosamax 70 mg started. 11/15/2021 lack of ambulation, progressive risk. Pain mgt : Tramadol 50 mg given relief, at time no relief started 10/2020 Brief Personal and family history: COVID 10/2020 (11/10/2020 loss of appetites, diarrhea few day, loss of strength, loss of smell taste ) ( no sob but cough which lead to testing ) ( was on quarantine ) ( joint pains started with COVID, about one week before ) COVID 11/2020 ( repeat ) recovered ( monoclonal ab done ) (family members all vaccination done, getting recurrent infection from NH staff ) Pain mgt : ( pain risk assesment 02/19/2021) Codeine nausea and vomiting OFF Tramadol at present 02/19/2021 (2020 went Off) )FF celebrex 200 mg daily ( 08/2025) (nurses have to give her med, she has no access to them ) 02/19/2021 (they watch her take it) Brief Personal and family history: (( was living alone after , did have mobility issue )) Skilled NH facility 08/2015 ( jail plans ) 2011 ( used to help her with ambulation and then had to move into facility ) Never smoked no ETOH No children One sister 61 arthritis HTN 02/19/2021 One brother 56 healthy 02/19/2021 Mom 82 02/19/2021 arthritis, HTN ( mom never smoked) ((lives with in assisted living near patient, her has medical issue, and with dementia ) Mother's sister 500 lbs ( large women in family ) Father ( no info ) ( his mother had RA ) (70 2006 ) ( smoker ? ) (lung cancer cause of ) Worked for couple and exposed to cigarette smoking 1989 COVID (3) Pfizer done 10/03/21 done ( still developed COVID ) , get 4 th shot, skip MTX for one week documented in this encounter [facility] 11-28-2021 Miscellaneous Notes Addended by: SUSAN ROWE on: 11/28/2021 06:08 PM Modules accepted: Orders Labs ordered MTX dose is 2.5 mg 10 tablets once a week 25 mg weekly Susan Rowe MD Ivory from [facility] [place] called to confirm this patient's Methotrexate dosage and to confirm labs that were ordered to be done before her next visit. She asked if the lab orders could be faxed to her at [phone]. Patient was seen on 11-15-[address] Rowe. documented in this encounter [facility] 11-28-2021 Miscellaneous Notes Patient called requesting the following refill. Pending Prescriptions Disp Refills METHOTREXATE SODIUM 2.5 MG TABLET 120 tablet 0 Sig: Take 10 tablets by mouth every Friday. as directed. [place]: No pended to print- needs faxed to Assisted living facility see TE Patient last appointment: 11/15/21 virtual Next Appointment: 02/14/2022 Patient Phone numbers: [phone] (home) Request is for script(s) to be escript to pharmacy printed to be mailed to patient. Jacquelyn Delarosa LPN documented in this encounter [facility] 11-15-2021 Miscellaneous Notes Addended by: SUSAN ROWE on: 11/15/2021 05:30 PM Modules accepted: Orders Please fax printed Susan Rowe MD Patient needs her medications always sent via fax to [phone]. She is in a group home and has to use an in house pharmacy. For today I believe it is the Methotrexate. Please print out medication prescriptions and fax to the number listed above. Yessica Lyles documented in this encounter [facility] 08-16-2021 Miscellaneous Notes Please send them this note COVJEAN CARLOS Pfizer third dose advised to her NNAMDI. Please hold methotrexate for one week after giving her this vaccine. (skin one week of methotrexate ) Please call office if need any clarification. Susan Rowe MD The group home will not take a verbal from the patient about getting the booster and holding the methotrexate for a week afterword. They need something in writing for this to happen. Is there anything special you would like me to communicate to them? Yessica Lyles documented in this encounter [facility] 08-16-2021 History of Presen t illness Narrative This note was created using [employer]. Subjective Estephanie Richardson is a 60 year old female. Doing good Off tramadol Weather cooler Knee pains Wrist pain Weather related Knee stiff If sleeps > 4 hour, then is worse Patient wakes up in the morning does stretches and it helps. No sob or chest pains Review of Systems Objective There were no vitals taken for this visit. Physical Exam Musculoskeletal: Comments: AAO 3 Neck appears normal Skin normal Wrist Decreased range of motion MCP pip low grade chronic appearing swelling Assessment and Plan First visit 02/19/2021 (all visit distant distant visitso far ) 08/16/2021 ( right handed ) ( lives in skilled living facility at present ) RA 1985 diagnosis ( age 18 ) (severe destructive RA) 02/2021 RF >120 ESR 26 mm high (>20) uric acid 4.1mg/dl Rheum ( not seen for few yr) Dr Freitas 2007 Dr [facility] [place] [phone] : ( no Raynaud's Phenomenon No DVT never preg ) ( no photosensitivity ) (( 01/2021 first visit, RA before remission and then 10/2020 flare with COVID, and visit for same ) (most affective joints are the knee and hand inner ) (( NOT ABLE TO WALK AFTER COVID) TREATMENT MTX best [id number] 12.5 mg weekly : 02/19/2021 MTX 20 mg weekly pred 5 mg 02/19/2021 03/07/2021 better cut back pred to 2.5 mg. 05/11/2021 pred stop ( T score -4 per patient) Fosamax 35 mg weekly 02/19/2021 Gold shot done OFF sulfasalazine done OFF Remission years in past 05/11/2021 plaquenil 300 mg started 05/11/2021 ( does not like needles ) 05/11/2021 ( not able to pay for med unless insurance covers fully ) (does not want xelzanz not mobile and poor tolerance to shingles ) 03/07/2021 doing better, labs noted, cut back pred, severe RA 08/16/2021 will be difficult to schedule in clinic, presently best stay on course, see in three months. Drug and disease monitoring 02/2021 cmp cbc normal Sicca ( attributes to dryness in facility ) 02/19/2021 Right elbow bursa 2019 onset ( nodule vs effusion ) (large appears to be 7 cm diameter large) ( aspiration attempted twice and no fluid ) per patient 03/07/2021 03/07/2021 send to ortho. KNee OA ( per patient bone on bone ) 02/19/2021 Swelling in legs ( edema ) 2018 onset 02/19/2021 Ht 5'3' now 5'0 Wt 275 02/19/2021 Hospital bed Snores ( per ) ( no sleep study ) 02/19/2021 Ambulation issue : 10/2020 unable to walk, using walker and leans over and puts wt on elbow and forearm . 10/2020 PT done for this issue, and suspended as cannot bear wt on the knee ( for bathroom using sit to stand device ) Walker use 10/2020 (10/2020 not able to walk, even with walker is not able to walk, after COVID severe deconditioning, several PT sessions done ) ( needs PT to walk with her to bathroom, cannot do alone ) ( restorative therapy planned 08/16/2021 ) Osteoporosis ( mom with osteoporosis) 07/2021 DXA right forearm 0.466 -4.8 left 0.516 -3.1 no comparison 05/11/2021 fosamax 70 mg started. Pain mgt : Tramadol 50 mg given relief, at time no relief started 10/2020 Brief Personal and family history: COVID 10/2020 (11/10/2020 loss of appetites, diarrhea few day, loss of strength, loss of smell taste ) ( no sob but cough which lead to testing ) ( was on quarantine ) ( joint pains started with COVID, about one week before ) Pain mgt : ( pain risk assesment 02/19/2021) Codeine nausea and vomiting OFF Tramadol at present 02/19/2021 (2020 went Off) )FF celebrex 200 mg daily ( 08/2025) (nurses have to give her med, she has no access to them ) 02/19/2021 (they watch her take it) Brief Personal and family history: Skilled NH facility 08/2015 ( jail plans ) 2011 ( used to help her with ambulation and then had to move into facility ) Never smoked no ETOH No children One sister 61 arthritis HTN 02/19/2021 One brother 56 healthy 02/19/2021 Mom 82 02/19/2021 arthritis, HTN ( mom never smoked) Mother's sister 500 lbs ( large women in family ) Father ( no info ) ( his mother had RA ) (70 2006 ) ( smoker ? ) (lung cancer cause of ) Worked for couple and exposed to cigarette smoking 1989 COVID Pfizer done 11/2020 (Booster due, do not use MTX for one week ) documented in this encounter [facility] 05-14-2021 Miscellaneous Notes I have faxed over the letter. Yessica Lyles Please send them letter telling them to stop or give verbal Or give a print out of this. Susan Rowe MD Makeda the nurse need an order or letter stating patient to stop taking prednisone. Fax [phone] documented in this encounter [facility] 03-09-2021 Miscellaneous Notes Internal referral #[id number] Orthopaedics Elissa [employer] documented in this encounter [facility] Evaluation note Diagnosis Rheumatoid arthritis involving both hands with positive rheumatoid factor (HCC)- Primary [facility] Diagnosis Rheumatoid arthritis involving both hands with positive rheumatoid factor (HCC)- [facility] Rheumatoid arthritis involving both hands with positive rheumatoid factor (HCC)- Primary Recurrent infections Unspecified infectious and parasitic diseases [facility] Diagnosis Rheumatoid arthritis involving both hands with positive rheumatoid factor (HCC)- Primary [facility] Diagnosis Rheumatoid arthritis involving both hands with positive rheumatoid factor (HCC)- Primary Senile osteoporosis [facility] Diagnosis Rheumatoid arthritis involving both hands with positive rheumatoid factor (HCC)- Primary Disuse osteoporosis [facility] Diagnostic Procedure Only (Routine) - New Request Specialty Diagnoses / Procedures Referred By Peter t Referred To Contact XR IMAGING Diagnoses Senile osteoporosis Procedures DXA-AXIAL SKELETON DXA BONE DENSITY STUDY 1/> SITES AXIAL Susan Piper MD [address] [place] [address] [place] [address] Referral ID Status Reason Start Date Expiration Date Visits Requested Visits Authorized [id number] New Request Auto-Generat ed Referral 11/03/2025 1 1 [facility] Instructions * Patient Instructions* Susan Rowe - 02/19/2021 8:25 AM EDT BONE MINERAL DENSITY PATIENT INSTRUCTIONS Bone mineral density testing measures the amount of calcium in certain parts of your bones. This information determines how strong your bones are. The test is used to detect osteoporosis, a disease in which the bone's mineral content and density are low, increasing a person's risk of fractures. Thelumbar spine (lower back) and the hip are the skeletal sites usually examined. For the test, remember that: 1. You cannot take this test if you are . 2. Eat a normal diet on the day of the test. 3. Take your medications as you normally would. 4. DO NOT take calcium supplements (such as Tums) for 24 hours before the test. 5. On the day of the test, leave valuables (jewelry or credit cards) at home. 6. The test should be performed prior to oral, rectal or IV contrast studies, or at least 7 days after any of these studies. For the test, you may be asked to wear a hospital gown. You will lie on your back, on a padded table, in a comfortable position. Generally, you can resume your usual activities immediately. documented in this encounter History of Present Illness * Susan Rowe - 02/19/2021 8:11 AM EDT This note was created using NoteWriter. Subjective Estephanie Richardson is a 60 year old female. Severe pain After COVID Three time prednisone given Worried about side effect Symptomatic relief from pred Shoulder wrist hand Hip pain at time Knee bilateral left > right 10/2020 and unable to wt bear on the knees Wrist hand Hand gloves Issue with grasp Issue with handwriting Issue clearing up after bathroom No jaw pain Neck pain Long standing Pain from the cervical spine is radiating to the shoulders. 10/2020 onset No low back pain Lumbar radiculopathy in the past No history of recurrent oral or genital ulcers, no history of superficial or deep vein thrombosis, no history of iritis, uveitis, no history of erythema nodosum is there. No history of Hidradenitis Suppurativa . Joint swelling at present knee hand There is no history of crystal confirmed gout. There is no history of swelling of 1st MTP joint with redness, and pain. Review of Systems Constitutional: Positive for fatigue. HENT: Negative. Eyes: Negative. Cardiovascular: Negative. Gastrointestinal: Negative. Endocrine: Negative. Genitourinary: Negative. Skin: Negative. Allergic/Immunologic: Negative. Neurological: Negative. Hematological: Negative. Psychiatric/Behavioral: Negative. Objective There were no vitals taken for this visit. Physical Exam Assessment and Plan First visit 02/19/2021 ( right handed ) ( no labs records in EMR ) RA 1985 diagnosis ( age 18 ) Rheum ( not seen for few yr) Dr Freitas 2007 Dr [facility] [place] [phone] : ( no Raynaud's Phenomenon No DVT never preg ) ( no photosensitivity ) TREATMENT MTX best [id number] 12.5 mg weekly : 02/19/2021 MTX 20 mg weekly pred 5 mg 02/19/2021 Fosamax 35 mg weekly 02/19/2021 Gold shot done sulfasalazine done Remission years Prednisone 02/19/2021 get labs done 11/202002/19/2021 Patient explained risk of corticosteroid treatment in detail, including but not limited to worsening of blood sugar, osteoporosis, myopathy, increased risk of infection, cataract, glaucoma, osteonecrosis of bone leading to need for joint replacement of shoulder hip etc. Other side effects peptic ulcer disease, mental disturbances, weight gain, acnes discussed. Patient explained should not use NSAID along with prednisone as higher risk of gastrointestinal bleed is there. Should take prednisone in am as can cause insomnia. Patient verbalized understanding. Explained the need for bisphosphonate prophylaxis if on pronged course of prednisone or on high doses of prednisone. Sicca ( attributes to dryness in facility ) 02/19/2021 KNee OA ( per patient bone on bone ) 02/19/2021 Swelling in legs ( edema ) 2018 onset 02/19/2021 Ht 5'3' now 5'0 Wt 275 02/19/2021 Hospital bed Snores ( per ) ( no sleep study ) 02/19/2021 Ambulation issue : 10/2020 unable to walk 10/2020 PT done for this issue, and suspended as cannot bear wt on the knee ( for bathroom using sit to stand device ) Walker use 10/2020 No DXA done ( mom with osteoporosis) 02/19/2021 get DXA done. Pain mgt : Tramadol 50 mg given relief, at time no relief started 10/2020 Brief Personal and family history: COVID 10/2020 (11/10/2020 loss of appetites, diarrhea few day, loss of strength, loss of smell taste ) ( no sob but cough which lead to testing ) ( was on quarantine ) ( joint pains started with COVID, about one week before ) Pain mgt : Codeine nausea and vomiting OFF Tramadol at present 02/19/2021 celebrex 200 mg daily ( 08/2025) (nurses have to give her med, she has no access to them ) 02/19/2021 (they watch her take it) PDMP website checked and validated. All prescriptions have been APPROPRIATELY filled. No suspiciousactivity was identified. 02/19/2021 by Susan Rowe MD Brief Personal and [place] history: [place] 08[place] 2011 ( used to help her with ambulation and then had to move into facility ) Never smoked no ETOH No children One sister 61 arthritis HTN 02/19/2021 One brother 56 healthy 02/19/2021 Mom 82 02/19/2021 arthritis, HTN ( mom never smoked) Mother's sister 500 lbs ( large women in family ) Father ( no info ) ( his mother had RA ) (70 2006 ) ( smoker ? ) Worked for couple and exposed to cigarette smoking 1989 Patient has no history of substance abuse, no history of any family member with abuse of drugs, no history of childhood abuse, no history of physical abuse, no history of emotional abuse, no history of sexual abuse, no coexisting psychiatric conditions or PTSD. All these was discussed with patient including alcohol and tobacco use. Patient encouraged to focus on coping skills, , consider physical and aquatic therapy, needs to be active in community, and to exert themselves physically as much as they can tolerate. Also to consider pschiatry and psychologist counseling to see if there are contributory factors towards pain that can be addressed. Safe use and storage and disposal of controlled medication discussed with patient.Patient verbalizes understanding. Please do not crush, chew, inhale or inject pain medicine. Pain patches are not to be cut and topical heat is not to be applied to pain patches. Risk of falls, sedation, respiratory depression, impairment of motor skills, urinary retention, constipation, nausea, vomiting, itching, opiate induced hyperalgesia ( more pain while on opiates compared to baseline), hypogonadism discussed with patient. Risk of addiction, withdrawal symptoms and management discussed with patient. Patient should not operate machinery, drive if these medications are interfering with his or her motor skills or having drowsiness. Risk include addiction, overdosage and discussed with patient. Must protect controlled medications from theft. PHone visit initial 34 min Arrange visit in 2-3 week video documented in this encounter* Susan Rowe - 03/07/2021 7:36 AM EDT This note was created using [employer]. Subjective Estephanie Richardson is a 60 year old female. I am doing better Doing OK So much better Prednisone magic pill DXA pending Labs done Neck pain lot better Low back pain none Hand and wrist pain Elbow intermittent Shoulder intermittent Bursa right elbow swelling 1 yr, tried to drain twice and no fluid Left elbow tiny bursa Putting wt on elbow down Has to lean over the walker Wrist hand pain Right >> left Using wrist wrap Ultram rarely needed Knee pain Feet no pain at present Hip pain past, and not active Lumbar radiculopathy left side past and not active at present . Review of Systems Objective There were no vitals taken for this visit. Physical Exam Musculoskeletal: Comments: There is no clear saliva gland swelling, skin is noted to be normal, there is no synovitis noted in the hand joint, AA0 3, ENT visual exam is normal, no lymphadenopathy is noted in the neckarea. Right shoulder Decreased range of motion large bursa right elbow bilateral wrist Decreased range of motion MCP 2-5 sweling Flexion deformity finger noted MCP left hand 2-5 swelling Flexion deformity finger noted. Psychiatric: Mood and Affect: Mood normal. Behavior: Behavior normal. Thought Content: Thought content normal. Judgment: Judgment normal. Assessment and Plan First visit 02/19/2021 ( right handed ) ( no labs records in EMR ) RA 1985 diagnosis ( age 18 ) (severe destructive RA) Rheum ( not seen for few yr) Dr Freitas 2007 Dr Cates [facility] [place] [phone] : ( no Raynaud's Phenomenon No DVT never preg ) ( no photosensitivity ) (( 01/2021 first visit, RA before remission and then 10/2020 flare with COVID, and visit for same ) TREATMENT MTX best [id number] 12.5 mg weekly : 02/19/2021 MTX 20 mg weekly pred 5 mg 02/19/2021 03/07/2021 better cut back pred to 2.5 mg. Fosamax 35 mg weekly 02/19/2021 Gold shot done OFF sulfasalazine done OFF Remission years 02/19/2021 get labs done 11/202002/19/2021 03/07/2021 doing better, labs noted, cut back pred, severe RA Drug and disease monitoring 02/2021 cmp cbc normal Sicca ( attributes to dryness in facility ) 02/19/2021 Right elbow bursa 2019 onset ( nodule vs effusion ) (large appears to be 7 cm diameter large) ( aspiration attempted twice and no fluid ) per patient 03/07/2021 03/07/2021 send to ortho. KNee OA ( per patient bone on bone ) 02/19/2021 Swelling in legs ( edema ) 2018 onset 02/19/2021 Ht 5'3' now 5'0 Wt 275 02/19/2021 Hospital bed Snores ( per ) ( no sleep study ) 02/19/2021 Ambulation issue : 10/2020 unable to walk, using walker and leans over and puts wt on elbow and forearm . 10/2020 PT done for this issue, and suspended as cannot bear wt on the knee ( for bathroom using sit to stand device ) Walker use 10/2020 No DXA done ( mom with osteoporosis) 02/19/2021 get DXA done. Pain mgt : Tramadol 50 mg given relief, at time no relief started 10/2020 Brief Personal and family history: COVID 10/2020 (11/10/2020 loss of appetites, diarrhea few day, loss of strength, loss of smell taste ) ( no sob but cough which lead to testing ) ( was on quarantine ) ( joint pains started with COVID, about one week before ) Pain mgt : ( pain risk assesment 02/19/2021) Codeine nausea and vomiting OFF Tramadol at present 02/19/2021 celebrex 200 mg daily ( 08/2025) (nurses have to give her med, she has no access to them ) 02/19/2021 (they watch her take it) PDMP website checked and validated. All prescriptions have been APPROPRIATELY filled. No suspiciousactivity was identified. 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 ) (lung cancer cause of ) Worked for couple and exposed to cigarette smoking 1989 COVID Pfizer done 11/2020 This Team Access Model visit is a encounter. It required patient-provider interaction for the medical decision making as documented below. Cannot be originating from a related evaluation and management service provided within 7 days. Cannot be used if an evaluation and management service or procedure is planned in next 24 hours. Total time spent and type of encounter: 17 min documented in this encounter Assessments Diagnosis Rheumatoid arthritis involving both hands with positive rheumatoid factor (HCC)- Primary Asymptomatic postmenopausal status Diagnosis Rheumatoid arthritis involving both hands with positive rheumatoid factor (HCC)- Primary Effusion of right olecranon bursa Reason for Referral Status Reason Specialty Diagnoses / Procedures Referred By Contact Referred To Contact Authorized PCP Requested Referral Orthopedics Diagnoses Effusion of right olecranon bursa Procedures CONSULT TO ORTHOPAEDICS NEW PATIENT VISIT LEVEL 5 Susan Rowe [address] [place] [address] Summary Purpose Family History No Family History Records FoundNo Family History Records Found Advance Directives No Advanced Directives Records FoundNo Advanced Directives Records Found Additional Source Comments Source Comments (unrecognize d section and content) In the event this informatio n is protected by the Federal Confidentiality of Alcohol and Drug Abuse Patient Records regulations: The Federal rules restrict any use of the information to criminally investigate or prosecute any alcohol or drug abuse patient.[facility] CompanyIn the event this information is protected by the Federal Confidentiality of Alcohol and Drug Abuse Patient Records regulations: The Federal rules restrict any use of the information to criminally investigate or prosecute any alcohol or drug abuse patient.[facility] CompanyIn the event this information is protected by the Federal Confidentiality of Alcohol and Drug Abuse Patient Records regulations: The Federal rules restrict any use of the information to criminally investigate or prosecute any alcohol or drug abuse patient.[facility] CompanyIn the event this information is protected by the Federal Confidentiality of Alcohol and Drug Abuse Patient Records regulations: The Federal rules restrict any use of the information to criminally investigate or prosecute any alcohol or drug abuse patient.[facility] CompanyIn the event this information is protected by the Federal Confidentiality of Alcohol and Drug Abuse Patient Records regulations: The Federal rules restrict any use of the information to criminally investigate or prosecute any alcohol or drug abuse patient.[facility] CompanyIn the event this information is protected by the Federal Confidentiality of Alcohol and Drug Abuse Patient Records regulations: The Federal rules restrict any use of the information to criminally investigate or prosecute any alcohol or drug abuse patient.[facility] CompanyIn the event this information is protected by the Federal Confidentiality of Alcohol and Drug Abuse Patient Records regulations: The Federal rules restrict any use of the information to criminally investigate or prosecute any alcohol or drug abuse patient.[facility] CompanyIn the event this information is protected by the Federal Confidentiality of Alcohol and Drug Abuse Patient Records regulations: The Federal rules restrict any use of the information to criminally investigate or prosecute any alcohol or drug abuse patient.[facility] CompanyIn the event this information is protected by the Federal Confidentiality of Alcohol and Drug Abuse Patient Records regulations: The Federal rules restrict any use of the information to criminally investigate or prosecute any alcohol or drug abuse patient.[facility] CompanyIn the event this information is protected by the Federal Confidentiality of Alcohol and Drug Abuse Patient Records regulations: The Federal rules restrict any use of the information to criminally investigate or prosecute any alcohol or drug abuse patient.[facility] CompanyIn the event this information is protected by the Federal Confidentiality of Alcohol and Drug Abuse Patient Records regulations: The Federal rules restrict any use of the information to criminally investigate or prosecute any alcohol or drug abuse patient.[facility] CompanyIn the event this information is protected by the Federal Confidentiality of Alcohol and Drug Abuse Patient Records regulations: The Federal rules restrict any use of the information to criminally investigate or prosecute any alcohol or drug abuse patient.[facility] CompanyIn the event this information is protected by the Federal Confidentiality of Alcohol and Drug Abuse Patient Records regulations: The Federal rules restrict any use of the information to criminally investigate or prosecute any alcohol or drug abuse patient.[facility] CompanyIn the event this information is protected by the Federal Confidentiality of Alcohol and Drug Abuse Patient Records regulations: The Federal rules restrict any use of the information to criminally investigate or prosecute any alcohol or drug abuse patient.[facility] CompanyIn the event this information is protected by the Federal Confidentiality of Alcohol and Drug Abuse Patient Records regulations: The Federal rules restrict any use of the information to criminally investigate or prosecute any alcohol or drug abuse patient.[facility] CompanyIn the event this information is protected by the Federal Confidentiality of Alcohol and Drug Abuse Patient Records regulations: The Federal rules restrict any use of the information to criminally investigate or prosecute any alcohol or drug abuse patient.[facility] CompanyIn the event this information is protected by the Federal Confidentiality of Alcohol and Drug Abuse Patient Records regulations: The Federal rules restrict any use of the information to criminally investigate or prosecute any alcohol or drug abuse patient.[facility] CompanyIn the event this information is protected by the Federal Confidentiality of Alcohol and Drug Abuse Patient Records regulations: The Federal rules restrict any use of the information to criminally investigate or prosecute any alcohol or drug abuse patient.[facility] CompanyIn the event this information is protected by the Federal Confidentiality of Alcohol and Drug Abuse Patient Records regulations: The Federal rules restrict any use of the information to criminally investigate or prosecute any alcohol or drug abuse patient.[facility] CompanyIn the event this information is protected by the Federal Confidentiality of Alcohol and Drug Abuse Patient Records regulations: The Federal rules restrict any use of the information to criminally investigate or prosecute any alcohol or drug abuse patient.[facility] CompanyIn the event this information is protected by the Federal Confidentiality of Alcohol and Drug Abuse Patient Records regulations: The Federal rules restrict any use of the information to criminally investigate or prosecute any alcohol or drug abuse patient.[facility] CompanyIn the event this information is protected by the Federal Confidentiality of Alcohol and Drug Abuse Patient Records regulations: The Federal rules restrict any use of the information to criminally investigate or prosecute any alcohol or drug abuse patient.[facility] Reason for Visit (unrecogniz ed section and content) Reason Comments Patient Update Reason Comments Arthritis Reason Comments Joint Pain Reason Comments Initial Consult orthopaedics Reason Comments Orders Reason Comments Joint Pain Reason Comments Booster / Methotrexate Reason Comments Medication Request Reason Onset Date Comments Refill Request 11/28/2021 Reason Comments Follow Up Reason Onset Date Comments Refill Request 06/10/2022 Reason Comments Appointment Telephone Encounter - Shannon Chandra - 02/19/2021 11:00 AM EDTTelephone Encounter - Maria R [employer] Head [employer]issa - 02/19/2021 8:48 AM EDTTelephone Encounter - Susan Rowe - 02/21/2021 6:53 PM EDT Miscellaneous Notes (unrecog nized section and content) I spoke with pt nurse Makeda,she want me to fax over the prescription and other orders. Can you print out the prescription? At checkout, per Dr Rowe: Video visit ? But was phone call 32 min how to bill ? OK to bill phone if cannot bill video Next visit OK to overbook in my schedule in 2-3 week Please call her NH and coordinate tramadol and other med, so that she can have them, these were E prescribed to her listed pharmacy She should get a DXA and labs done now. Stefani, please assist with charging; Shannon please contact group home. Thank you. Elissa Heck [employer] documented in this encounter Discuss on face to face appt Susan Rowe MD The nurse called said pt do not want to get any thing done.she feel no need for dexa scan.pt mom is telling her what to do.the nurse will try talking to her and have her to get it done. documented in this encounter Care Teams (unrecognized sec tion and content) Oxygen Therapy Teacher Relationship Specialty Start Date End Date Joshua Ziegler (Hist) NO FORWARDING ADDRESS PCP - General 09/16/02 Oxygen Therapy Teacher Relationship Specialty Start Date End Date Joshua Ziegler (Hist) NO FORWARDING ADDRESS PCP - General 09/16/02 Oxygen Therapy Teacher Relationship Specialty Start Date End Date Joshua Ziegler (Hist) NO FORWARDING ADDRESS PCP - General 09/16/02 Oxygen Therapy Teacher Relationship Specialty Start Date End Date Joshua Ziegler C (Hist) NO FORWARDING ADDRESS PCP - General 09/16/02 Oxygen Therapy Teacher Relationship Specialty Start Date End Date Joshua Ziegler C (Hist) NO FORWARDING ADDRESS PCP - General 09/16/02 Oxygen Therapy Teacher Relationship Specialty Start Date End Date Joshua Ziegler C (Hist) NO FORWARDING ADDRESS PCP - General 09/16/02 Oxygen Therapy Teacher Relationship Specialty Start Date End Date Joshua Ziegler C (Hist) NO FORWARDING ADDRESS PCP - General 09/16/02 Oxygen Therapy Teacher Relationship Specialty Start Date End Date Joshua Ziegler (Hist) NO FORWARDING ADDRESS PCP - General 09/16/02 Oxygen Therapy Teacher Relationship Specialty Start Date End Date Joshua Ziegler (Hist) NO FORWARDING ADDRESS PCP - General 09/16/02 Oxygen Therapy Teacher Relationship Specialty Start Date End Date Joshua Ziegler (Hist) NO FORWARDING ADDRESS PCP - General 09/16/02 INFORMATION SOURCE (unrecogn ized section and content) DATE CREATED AUTHOR 12/21/2024 [facility] DATE CREATED AUTHOR AUTHOR'S JONA MENDEZ 02/13/2025 [facility] FOR RECORDS PERTAINING TO PATIENTS WHO ARE OR HAVE BEEN ENROLLED IN A CHEMICAL DEPENDENCY/SUBSTANCEABUSE PROGRAM, SOME INFORMATION MAY BE OMITTED. This clinical summary was aggregated from multiple sources. Caution should be exercised in using it in the provision of clinical care. This summary normalizes information from multiple sources, and as a consequence, information in this document may materially change the coding, format and clinical context of patient data. In addition, data may be omitted in some cases. CLINICAL DECISIONS SHOULD BE BASED ON THE PRIMARY CLINICAL RECORDS. [employer] [facility]. provides no warranty or guarantee of the accuracy or completeness of information in this document.
[2025-05-08] MEDS: Albuterol 2.5 MG/3 ML VIAL.NEB. INHALATION (03:24)
[2025-05-08] MEDS: Morphine 4 MG/ML Syringe IV (03:39)
[2025-05-08] MEDS: Ondansetron 4 MG/2 ML Vial IV (03:39)
[2025-05-08 03:45] LABS: Absolute Lymphocyte Count 0.46 X10^3/uL (0.83-4.51); Absolute Neutrophil Count 8.6 X10^3/uL (2.0-7.7); Basophil# 0.06 X10^3/uL; Basophil% 0.6 % (0-1); Eosinophil# 0.07 X10^3/uL; Eosinophils% 0.7 % (0-5); Hematocrit 36.2 % (37-47); Hemoglobin 11.3 g/dL (12.0-15.0); Lymphocyte # 0.46 X10^3/ul (0.83-4.51); Lymphocyte % 4.3 % (19-41); Mean Corp Hgb Conc 31.2 g/dL (32-36); Mean Corpuscular Hgb 26.3 pg (27.0-32.0); Mean Corpuscular Volume 84.4 fL (81-99); Mean Platelet Vol. 10.2 fl (6.2-12.0); Monocyte# 1.36 X10^3/uL; Monocyte% 12.8 % (0-10); NRBC Flagged by Analyzer 0 % (0-5); POSITIVE DIFFERENTIAL YES; POSITIVE MORPHOLOGY YES; Platelet Count 238 K/mm3 (150-450); RBC Distribution Width CV 20.4 % (11.6-14.6); RBC Distribution Width SD 61.7 fl (35.1-43.9); Red Blood Count 4.29 M/mm3 (4.2-5.4); White Blood Count 10.6 K/mm3 (4.4-11.0)
[2025-05-08 03:53] LABS: Differential Indicated SCAN CRITERIA MET
--- NOTE | 2025-05-08 03:55 | RAD_ITS ---
PROCEDURE: CHEST 1 VIEW (PORTABLE) 05/08/2025 REASON FOR EXAM: Shortness of breath. TECHNIQUE: Frontal view of the chest. COMPARISON: None. FINDINGS: Cardiac size and pulmonary vasculature are within normal limits. No consolidation, pleural effusion, or pneumothorax is present. RAD/Chest 1 View (Portable) IMPRESSION: No acute cardiopulmonary process. Reading Location: [facility]
[2025-05-08 03:58] LABS: D-Dimer Quantitative (DVT/PE) 2.01 FEU/ug/m (0.27-0.49)
[2025-05-08 05:00] LABS: Anisocytosis 1+; Differential Comment SCANNED; Polychromasia RARE
[2025-05-08] MEDS: Ketorolac 15 MG/ML Vial IV (05:40)
[2025-05-08] MEDS: Metoclopramide 10 MG/2 ML Vial 5 MG IV (05:40)
[2025-05-08 05:50] LABS: Anion Gap 13 (5-15); BUN 15 mg/dL (4-19); BUN/Creat Ratio 20.9 RATIO (10-20); Calcium,Total 8.7 mg/dL (7.6-11.0); Carbon Dioxide 20.1 mmol/L (21.0-32.0); Chloride 105 mmol/L (98-108); Creatinine, Serum 0.72 mg/dL (0.70-1.20); EST Glomerular Filtration Rate 93 (>60); Estimated Creatinine Clearance 96.42 ml/min (50-250); Glucose 136 mg/dL (70-99); Potassium 4.8 mmol/L (3.3-5.1); Sodium Level 138 mmol/L (133-145)
--- NOTE | 2025-05-08 05:50 | RAD_ITS ---
PROCEDURE: CERV SPINE 2 OR 3 VIEWS 05/08/2025 REASON FOR EXAM: NECK PAIN TECHNIQUE: CERV SPINE 2 OR 3 VIEWS, AP, lateral and odontoid views obtained COMPARISON: None. FINDINGS: Vertebrae: Vertebral body heights are maintained. There is multilevel degenerative disc disease and endplate spondylosis. Due to degenerative disease loss of the normal cervical lordosis. disc spaces: Decreased disc height throughout. soft tissues: Unremarkable. Other: RAD/Cerv Spine 2 or 3 Views IMPRESSION: No acute process. Disc disease and spondylosis as above. Disclaimer: Reading Location[facility], [facility]
[2025-05-08 06:21] LABS: Pro- Brain NATRIURETIC PEPTIDE 504 pg/mL (<=900); Troponin T High Sensitivity 9 ng/L (<=14)
[2025-05-08] MEDS: HYDROmorphone 0.5 MG/0.5 ML SYRINGE IV (06:35)
== END 2025-05-08 07:37 | disposition skilled nursing facility (03) ==
PROVIDERS: Emergency Provider Emergency Medicine; PCP Family Medicine; Visit Provider Emergency Medicine
DX: R06.2 Wheezing (principal); M06.9 Rheumatoid arthritis, unspecified; E66.01 Morbid (severe) obesity due to excess calories; Z68.44 Body mass index [BMI] 60.0-69.9, adult; M54.2 Cervicalgia; I10 Essential (primary) hypertension; Z66 Do not resuscitate; Z79.1 Long term (current) use of non-steroidal anti-inflammatories (NSAID); Z79.899 Other long term (current) drug therapy
CPT/HCPCS: 70450; 71045; 72040; 80048; 83880; 84484; 85025; 85379; 93005; 94640; 96374; 96375; 99285; A4216; J2405